=== PATIENT | female | born 1935 | race Two or more races ===

== ENCOUNTER 2016-11-26 07:48 | Inpatient (IN) | payer OTHER ==
--- NOTE | 2016-11-26 09:03 | PDOC ---
History of Present Illness - General Chief Complaint: Chest Pain Stated Complaint: CHEST PAIN Time Seen by Provider: 11/26/16 07:54 History Source: Patient Exam Limitations: No Limitations - History of Present Illness Initial Comments: 11/26/16 08:52 81-year-old female presents to the ED with constant chest heaviness since yesterday associated with nausea this morning. Patient hit her med alert [employer] which activated EMS who found patient to be in sinus bradycardia but with complaints of the above so came to baby aspirin and 1 nitroglycerin with a second repeated with no relief of chest pain. Patient arrives with 1 out of 10 chest heaviness and no complaints of palpitations, nausea, dizziness, headache, shortness of breath, or sweating. Patient states had an echocardiogram about 15 years ago and is followed by a doctor up states since she is here only visiting her son for the holidays. 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 Presenting Symptoms: Chest Pain, Nausea Severity/Quality: reports: moderate Nitro Today/Relief: Yes: 0.4 mg x 2, provided by EMS Aspirin Received prior to arrival (Core Measure): Yes: 81 mg x 2, provided by EMS Associated Symptoms: Yes: Chest Pain/pressure, Nausea Past History - Past Medical History Allergies/Adverse Reactions: Allergies Allergy/AdvReac Type Severity Reaction Status Date / Time No Known Allergies Allergy Verified 11/26/16 08:13 Home Medications: Ambulatory Orders Carvedilol [Coreg] 6.25 mg PO BID 11/26/16 Ciprofloxacin [Cipro (Restricted To Id)] 0 mg PO Q12H 11/26/16 Escitalopram Oxalate [Lexapro -] 0 mg PO DAILY 11/26/16 Isosorbide Mononitrate [Imdur -] 60 mg PO DAILY 11/26/16 Spironolactone mg PO DAILY 11/26/16 Cardiac Disorders: Yes (6 stents) CVA: Yes HTN: Yes - Psycho/Social/Smoking Cessation Hx Anxiety: No Suicidal Ideation: No Smoking History: Never smoked Information on smoking cessation initiated: No Hx Alcohol Use: No Drug/Substance Use Hx: No Substance Use Type: None Patient Lives Alone: Yes Lives with/in: lives alone Review of Systems - Review of Systems Able to Perform ROS?: Yes Constitutional: No: Symptoms Reported HEENTM: No: Symptoms Reported Respiratory: No: Symptoms reported Cardiac (ROS): Yes: Chest Pain ABD/GI: Yes: Nausea : No: Symptoms Reported Musculoskeletal: No: Symptoms Reported Integumentary: No: Symptoms Reported Neurological: No: Symptoms reported Endocrine: No: Symptoms Reported Hematologic/Lymphatic: No: Symptoms Reported *Physical Exam - Vital Signs Last Vital Signs Temp Pulse Resp BP Pulse Ox 97.5 F L 59 L 18 155/69 98 11/28/16 07:14 11/28/16 07:14 11/28/16 07:14 11/28/16 07:14 11/27/16 21:00 - Physical Exam General Appearance: Yes: Nourished, Appropriately Dressed. No: Apparent Distress HEENT: positive: EOMI, SADA. negative: Pale Conjunctivae Neck: positive: Supple Respiratory/Chest: positive: Lungs Clear, Normal Breath Sounds. negative: Respiratory Distress, Accessory Muscle Use Cardiovascular: positive: Regular Rhythm, Bradycardia. negative: Murmur Gastrointestinal/Abdominal: positive: Soft, Tenderness (mild epigastric). negative: Pulsatile Mass, Mass Extremity: positive: Normal Capillary Refill. negative: Pedal Edema Integumentary: positive: Warm, Moist Neurologic: positive: Normal Mood/Affect, Motor Strength 5/5 (ambulatory) Heart Score/ECG Review - History History: Slightly suspicious - Electrocardiogram EKG: Normal - Age Age: >/= 65 - Risk Factors Risk Factors Heart Score: Yes Hx Hypertension Based on the list above the patient has:: 1-2 risk factors - Troponin Troponin: </= normal limit - Score Heart Score - Total: 3 - ECG Intrepretation Rhythm: Regular Rhythm (sinus bradycardia at 52. No acute findings) ED Treatment Course - LABORATORY CBC & Chemistry Diagram: 11/28/16 06:00 11/28/16 06:00 - ADDITIONAL ORDERS Additional order review: 11/26/16 11/26/16 10:15 08:19 RBC 3.83 Cancelled MCV 92.3 Cancelled MCHC 32.6 Cancelled RDW 14.4 Cancelled MPV 10.2 Cancelled Neutrophils % 60.0 Cancelled Lymphocytes % 26.0 Cancelled Monocytes % 14.0 H Cancelled Eosinophils % Cancelled Basophils % Cancelled - RADIOLOGY Radiology Studies Ordered: Category Date Time Status CHEST PA & LAT [RAD] Stat Radiology 11/26/16 08:16 Completed - Medications Given in the ED: ED Medications Discontinued Medications Generic Name Dose Route Start Last Admin Trade Name Benny PRN Reason Stop Dose Admin Heparin Sodium (Porcine) 5,000 unit 11/26/16 22:00 11/27/16 10:41 Heparin - SQ 5,000 unit BID DIPESH Administration Magnesium Sulfate 1 gm 11/26/16 09:55 11/26/16 10:55 Magnesium Sulfate IVPB 11/26/16 09:56 1 gm ONCE ONE Administration Magnesium Sulfate 2 gm 11/27/16 16:41 11/27/16 18:10 Magnesium Sulfate IVPB 11/27/16 16:42 2 gm ONCE ONE Administration Medical Decision Making - Critical Care Time Total Critical Care Time (minutes): 35 Critical Care Statement: The care of this patient involved high complexity decision making to prevent further life threatening deterioration of the patient 's condition and/or to evalute & treat vital organ system(s) failure or risk of failure. - Medical Decision Making 11/26/16 08:56 Patient with complaints of central chest heaviness since yesterday associated nausea this morning. She found to be in sinus bradycardia upon arrival with 1 out of 10 complaints without nausea presently. Patient hard score is less than 3 but does have history of CAD with stents, hypertension with her last stress strest around 2-3 yrs ago and echocardiogram 15 years ago. Patient states is not have a weight engineer but only a primary care physician where she lives. Patient ordered for cardiac workup 11/26/16 09:57 Laboratory Tests 11/26/16 11/26/16 08:19 08:19 INR 1.28 H Sodium 143 Potassium 3.9 Chloride 112 H Carbon Dioxide 25 Anion Gap 6 L BUN 18 Creatinine 0.9 Random Glucose 74 Calcium 9.0 Magnesium 1.5 L Total Bilirubin 0.6 AST 37 ALT 28 Alkaline Phosphatase 73 Creatine Kinase 42 Troponin I < 0.02 patient ordered for 1 g of magnesium and will admit to telemetry observation 11/26/16 10:46 Laboratory Tests 11/26/16 10:15 WBC 2.2 L Hgb 11.5 Hct 35.4 Plt Count 66 L Neutrophils % Y 11/26/16 11:[address] Kwok and will admit to telemetry observation status and she recommends consultation to Dr. Larson. 11/26/16 12:00 Dr. Mascitelli here for consultation. 2nd troponin and EKG ordered. UA still pending *DC/Admit/Observation/Transfer Diagnosis at time of Disposition: Hypomagnesemia Chest pain Qualifiers: Chest pain type: unspecified Qualified Code(s): R07.9 - Chest pain, unspecified - Discharge Dispostion Admit: Yes
[2016-11-26 09:04] LABS: ALBUMIN 2.9 g/dl (3.4-5.0); ANION GAP 6 (8-16); BILIRUBIN,TOTAL 0.6 mg/dL (0.2-1.0); CO2 25 mmol/L (21-32); CREATININE 0.9 mg/dL (0.55-1.02); GLUCOSE,RANDOM 74 mg/dL (74-106); MAGNESIUM 1.5 mg/dL (1.8-2.4); SGOT/AST 37 U/L (15-37); SGPT/ALT 28 U/L (12-78); TOT PROT 7.5 g/dl (6.4-8.2)
[2016-11-26 09:07] LABS: ALK PHOS 73 U/L (45-117); INR 1.28 (0.82-1.09); PROTHROMBIN TIME (PATIENT) 14.1 SEC (9.98-11.88); TROPONIN I < 0.02 ng/ml (0.00-0.05)
[2016-11-26] MEDS ORDERED: MAGNESIUM SULF 50% (8.12 MEQ/2 ML-1 GM VIAL) IVPB ONE (09:55)
[2016-11-26 10:23] LABS: MCH 30.1 pg (25.7-33.7); MCHC 32.6 g/dl (32.0-36.0); MEAN CELL VOLUME 92.3 fl (80-96); MEAN PLT VOLUME 10.2 fl (7.5-11.1); PLATELET COUNT 66 K/MM3 (134-434); RDW 14.4 % (11.6-15.6); WHITE BLOOD COUNT 2.2 K/mm3 (4.0-10.0)
[2016-11-26] MEDS ORDERED: MAGNESIUM SULF 50% (8.12 MEQ/2 ML-1 GM VIAL) ONE (10:50)
--- NOTE | 2016-11-26 15:46 | EKG ---
Test Reason : Blood Pressure : / mmHG Vent. Rate : 052 BPM Atrial Rate : 052 BPM P-R Int : 146 ms QRS Dur : 094 ms QT Int : 460 ms P-R-T Axes : 063 -09 134 degrees QTc Int : 427 ms POOR DATA QUALITY, INTERPRETATION MAY BE ADVERSELY AFFECTED SINUS BRADYCARDIA VOLTAGE CRITERIA FOR LEFT VENTRICULAR HYPERTROPHY ANTERIOR INFARCT , AGE UNDETERMINED T WAVE ABNORMALITY, CONSIDER LATERAL ISCHEMIA ABNORMAL ECG NO PREVIOUS ECGS AVAILABLE Confirmed by JUD FAY, YESSICA ([id number]) on 11/26/2016 3:45:49 PM Referred By: Overread By: YESSICA RENNER MD
--- NOTE | 2016-11-26 15:51 | CONSULT ---
Consult Consult Specialty:: cardiology Reason for Consultation:: shortness of breath; - History of Present Illness History of Present Illness: 81-year-old black female (b. [place]) with PMHx "small DE" in 2008; s/p coronary stents x 6, the latest about 3 years ago (? in [place]), also followed in [facility], though not by canvas goods maker recently (? stress Persantine test done about 1 1/2 years ago), anxiety/depression, who presents to the ED with constant chest heaviness since yesterday associated with nausea this morning. Patient hit her [employer] activated EMS who found patient to be in sinus bradycardia but with complaints of the above so came to baby aspirin and 1 nitroglycerin with a second repeated with no relief of chest pain. Patient arrives with 1 out of 10 chest heaviness and no complaints of palpitations, nausea, dizziness, headache, shortness of breath, or sweating. Patient states is followed by a doctor since she is here only visiting her son for the holidays. Patient also states history of CVA 1 year ago and hypertension and takes her medication regularly. 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 Cardio/Vascular: Yes: HTN, DE Reproductive: Yes: Postmenopausal ...: No Heme/Onc: Yes: Other (leukopenia) Psych: Yes: Anxiety, Depression - Past Surgical History Past Surgical History: Yes: Stent ("six" coronary stents) - Alcohol/Substance Use Hx Alcohol Use: No - Smoking History Smoking history: Never smoked Home Medications - Allergies Allergies/Adverse Reactions: Allergies Allergy/AdvReac Type Severity Reaction Status Date / Time No Known Allergies Allergy Verified 11/26/16 08:13 - Home Medications Home Medications: Ambulatory Orders Carvedilol [Coreg] 6.25 mg PO BID 11/26/16 Ciprofloxacin [Cipro (Restricted To Id)] 0 mg PO Q12H 11/26/16 Escitalopram Oxalate [Lexapro -] 0 mg PO DAILY 11/26/16 Isosorbide Mononitrate [Imdur -] 60 mg PO DAILY 11/26/16 Spironolactone mg PO DAILY 11/26/16 Family Disease History - Family Disease History Family History: Denies Review of Systems - Review of Systems Constitutional: reports: Weakness Eyes: reports: No Symptoms HENT: reports: No Symptoms Neck: reports: No Symptoms Cardiovascular: reports: Chest Pain Respiratory: reports: SOB Musculoskeletal: reports: Muscle Weakness Neurological: reports: Weakness Psychiatric: reports: Anxiety, Depression - Risk Factors Known Risk Factors: Yes: Age, Hypertension, Physical Inactivity, Prior DE /Emb Stroke Vital Signs: Vital Signs Temperature 98.7 F 11/26/16 08:13 Pulse Rate 51 L 11/26/16 13:26 Respiratory Rate 20 11/26/16 13:26 Blood Pressure 150/63 11/26/16 13:26 O2 Sat by Pulse Oximetry (%) 97 11/26/16 13:26 Constitutional: Yes: Thin Eyes: Yes: WNL HENT: Yes: WNL Neck: Yes: WNL Respiratory: Yes: SOB on Exertion Gastrointestinal: Yes: Soft Renal/: Yes: Anuria Cardiovascular: Yes: Regular Rate and Rhythm JVD: No Carotid Bruit: No PMI: Non-Displaced Heart Sounds: Yes: S1, S2, S4 Murmur: Yes: Systolic Murmur, Grade 1 Musculoskeletal: Yes: Muscle Weakness Extremities: Yes: Cool Edema: No Peripheral Pulses WNL: No Peripheral Pulses: 1+ Left Doralis Pedis, 1+ Right Dorsalis Pedis Integumentary: Yes: WNL Neurological: Yes: Alert, Oriented, Weakness Psychiatric: Yes: Alert, Oriented - Other Data Labs, Other Data: INR, PTT INR 1.28 (0.82-1.09) H 11/26/16 08:19 Abnormal Lab Results 11/26/16 11/26/16 11/26/16 08:19 08:19 10:15 WBC 2.2 L Plt Count 66 L Monocytes % 14.0 H INR 1.28 H Chloride 112 H Anion Gap 6 L Magnesium 1.5 L Albumin 2.9 L Urine Protein Urine Blood Ur Leukocyte Esterase 11/26/16 22:31 WBC Plt Count Monocytes % INR Chloride Anion Gap Magnesium Albumin Urine Protein 2+ H Urine Blood 2+ H Ur Leukocyte Esterase Trace H Imaging - Results Chest X-ray: Image Reviewed (no acute pulmonary pathology; ?rib fractures (righ side); cardiomegaly) EKG: Image Reviewed (NSR;) Problem List - Problems (1) Chest pain Assessment/Plan: atypical presentation (constant for days; not related to exertion). TNI negative x 1; f/u serially. ECHO for LVEF, wall motion and thickness. F/u EKG serially (?old anterior DE; lateral T wave changes). Pt reports having had a stress test (from description, it was a pharmacologic stress MIBI) about 1 1/2 years ago ?at PMD's office. F/u records, and consider repeat if unable to obtain. Code(s): R07.9 - CHEST PAIN, UNSPECIFIED Qualifiers: Chest pain type: unspecified Qualified Code(s): R07.9 - Chest pain, unspecified (2) Hypomagnesemia Assessment/Plan: replete; f/u level. Code(s): E83.42 - HYPOMAGNESEMIA (4) Leukopenia Code(s): D72.819 - DECREASED WHITE BLOOD CELL COUNT, UNSPECIFIED (5) Hypertension Code(s): I10 - ESSENTIAL (PRIMARY) HYPERTENSION (6) S/P coronary artery stent placement Code(s): Z95.5 - PRESENCE OF CORONARY ANGIOPLASTY IMPLANT AND GRAFT (7) Anxiety and depression Code(s): F41.9 - ANXIETY DISORDER, UNSPECIFIED F32.9 - MAJOR DEPRESSIVE DISORDER, SINGLE EPISODE, UNSPECIFIED
--- NOTE | 2016-11-26 16:31 | PDOC ---
*Physical Exam - Vital Signs Last Vital Signs Temp Pulse Resp BP Pulse Ox 98.7 F 51 L 20 150/63 97 11/26/16 08:13 11/26/16 13:26 11/26/16 13:26 11/26/16 13:26 11/26/16 13:26 ED Treatment Course - LABORATORY CBC & Chemistry Diagram: 11/26/16 10:15 11/26/16 08:19 - ADDITIONAL ORDERS Additional order review: Laboratory Results 11/26/16 11/26/16 08:19 08:19 INR 1.28 H Sodium 143 Potassium 3.9 Chloride 112 H Carbon Dioxide 25 Anion Gap 6 L BUN 18 Creatinine 0.9 Creat Clearance w eGFR > 60 Random Glucose 74 Calcium 9.0 Magnesium 1.5 L Total Bilirubin 0.6 AST 37 ALT 28 Alkaline Phosphatase 73 Creatine Kinase 42 Troponin I < 0.02 Total Protein 7.5 Albumin 2.9 L 11/26/16 11/26/16 10:15 08:19 RBC 3.83 Cancelled MCV 92.3 Cancelled MCHC 32.6 Cancelled RDW 14.4 Cancelled MPV 10.2 Cancelled Neutrophils % 60.0 Cancelled Lymphocytes % 26.0 Cancelled Monocytes % 14.0 H Cancelled Eosinophils % Cancelled Basophils % Cancelled - Medications Given in the ED: ED Medications Discontinued Medications Generic Name Dose Route Start Last Admin Trade Name Benny PRN Reason Stop Dose Admin Magnesium Sulfate 1 gm 11/26/16 09:55 11/26/16 10:55 Magnesium Sulfate IVPB 11/26/16 09:56 1 gm ONCE ONE Administration Medical Decision Making - Medical Decision Making 11/26/16 16:31 Pt seen by Midlevel Provider under my direct supervision Pt interviewed and examined Ancillary studies reviewed I agree with plan as outlined by Midlevel Provider *DC/Admit/Observation/Transfer Diagnosis at time of Disposition: Hypomagnesemia Chest pain Qualifiers: Chest pain type: unspecified Qualified Code(s): R07.9 - Chest pain, unspecified
[2016-11-26 16:57] LABS: TROPONIN I < 0.02 ng/ml (0.00-0.05)
[2016-11-26] MEDS: ASPIRIN COATED 81 MG TABLET.EC PO SCH (21:24)
[2016-11-26] MEDS: HEPARIN NA (PORCINE) 5,000 UNITS/ML 1ML VIAL SQ SCH (21:24)
[2016-11-26] MEDS: CARVEDILOL 6.25 MG TABLET (FP) PO SCH (21:24)
[2016-11-26] MEDS: ISOSORBIDE MONONITRATE 60 MG TAB.SR.24H (FP) PO SCH (21:24)
[2016-11-26 22:36] LABS: TROPONIN I < 0.02 ng/ml (0.00-0.05)
[2016-11-26 23:26] LABS: URINE APPEARANCE CLEAR; URINE BILIRUBIN NEGATIVE (NEGATIVE); URINE COLOR YELLOW; URINE GLUCOSE (UA) NEGATIVE (NEGATIVE); URINE KETONE NEGATIVE (NEGATIVE); URINE NITRITE POSITIVE (NEGATIVE); URINE UROBILINOGEN NEGATIVE E.U./dl (0.2-1.0)
[2016-11-26 23:30] LABS: URINE BLOOD 2+ (NEGATIVE); URINE LEUK ESTERASE TRACE (NEGATIVE); URINE PROTEIN 2+ (NEGATIVE)
[2016-11-26 23:31] LABS: URINE BACTERIA RARE /hpf (NONE SEEN); URINE MUCUS RARE; URINE RBC 31 /hpf (0-3); URINE WBC 9 /hpf (3-5)
[2016-11-27 02:02] VITALS: BMI 25.0
[2016-11-27 02:44] LABS: CHOLESTEROL 102 mg/dL (50-200); LDL CHOLESTEROL (ONLY SJRH) 47 mg/dL (5-100)
[2016-11-27 02:51] LABS: THYROID STIMULATING HORMONE 2.01 uIU/ml (0.358-3.74)
[2016-11-27 08:31] LABS: MCH 30.4 pg (25.7-33.7); MCHC 33.1 g/dl (32.0-36.0); MEAN CELL VOLUME 91.9 fl (80-96); MEAN PLT VOLUME 9.7 fl (7.5-11.1); PLATELET COUNT 56 K/MM3 (134-434); RDW 14.5 % (11.6-15.6)
[2016-11-27 08:37] LABS: WHITE BLOOD COUNT 1.8 K/mm3 (4.0-10.0)
[2016-11-27 08:52] LABS: ALBUMIN 2.8 g/dl (3.4-5.0); ALK PHOS 64 U/L (45-117); ANION GAP 1 (8-16); BILIRUBIN,TOTAL 0.5 mg/dL (0.2-1.0); CALCIUM 8.7 mg/dL (8.5-10.1); CO2 25 mmol/L (21-32); CREATININE 0.9 mg/dL (0.55-1.02); GLUCOSE,RANDOM 72 mg/dL (74-106); MAGNESIUM 1.7 mg/dL (1.8-2.4); SGOT/AST 34 U/L (15-37); SGPT/ALT 26 U/L (12-78)
--- NOTE | 2016-11-27 10:13 | EKG ---
Test Reason : Blood Pressure : / mmHG Vent. Rate : 058 BPM Atrial Rate : 058 BPM P-R Int : 158 ms QRS Dur : 096 ms QT Int : 456 ms P-R-T Axes : 063 -08 136 degrees QTc Int : 447 ms SINUS BRADYCARDIA VOLTAGE CRITERIA FOR LEFT VENTRICULAR HYPERTROPHY ANTERIOR INFARCT (CITED ON OR BEFORE 26-NOV-2016) T WAVE ABNORMALITY, CONSIDER ANTEROLATERAL ISCHEMIA ABNORMAL ECG WHEN COMPARED WITH ECG OF 26-NOV-2016 08:00, NO SIGNIFICANT CHANGE WAS FOUND Confirmed by MD WILFRIDO, MCKAYLA ([id number]) on 11/27/2016 10:13:21 AM Referred By: MARIANA FELIX Overread By: MCKAYLA ANNA MD
[2016-11-27] MEDS: CARVEDILOL 6.25 MG TABLET (FP) PO SCH ×2 (10:38→21:28)
[2016-11-27] MEDS: SPIRONOLACTONE 25 MG TABLET (FP) PO SCH (10:38)
[2016-11-27] MEDS: ASPIRIN COATED 81 MG TABLET.EC PO SCH (10:38)
[2016-11-27] MEDS: ESCITALOPRAM OXALATE 10 MG TABLET (FP) PO SCH (10:38)
[2016-11-27] MEDS: ISOSORBIDE MONONITRATE 60 MG TAB.SR.24H (FP) PO SCH (10:38)
[2016-11-27] MEDS: HEPARIN NA (PORCINE) 5,000 UNITS/ML 1ML VIAL SQ SCH (10:41)
[2016-11-27] MEDS ORDERED: MAGNESIUM SULF 50% (8.12 MEQ/2 ML-1 GM VIAL) IVPB ONE (16:41)
--- NOTE | 2016-11-27 16:42 | PN ---
Progress Note, Physician History of Present Illness: 81-year-old black female (b. [place]) with PMHx "small NH" in 2008; s/p coronary stents x 6, the latest about 3 years ago (? in [place]), also followed in [facility], though not by design cell engineer recently (? stress Persantine test done about 1 1/2 years ago), anxiety/depression, who presents to the ED with constant chest heaviness since yesterday associated with nausea this morning. Patient hit her [employer] activated EMS who found patient to be in sinus bradycardia but with complaints of the above so came to baby aspirin and 1 nitroglycerin with a second repeated with no relief of chest pain. Patient arrives with 1 out of 10 chest heaviness and no complaints of palpitations, nausea, dizziness, headache, shortness of breath, or sweating. Patient states is followed by a doctor since she is here only visiting her son for the holidays. Patient also states history of CVA 1 year ago and hypertension and takes her medication regularly. Presenting Symptoms: Chest Pain, Nausea Severity/Quality: reports: moderate Nitro Today/Relief: Yes: 0.4 mg x 2, provided by EMS - Current Medication List Current Medications: Active Medications Aspirin (Ecotrin -) 81 mg PO DAILY PENDING SALE TO [facility] Last Admin: 11/27/16 10:38 Dose: 81 mg Carvedilol (Coreg -) 6.25 mg PO BID PENDING SALE TO [facility] Last Admin: 11/27/16 10:38 Dose: 6.25 mg Escitalopram Oxalate (Lexapro -) 10 mg PO DAILY PENDING SALE TO [facility] Last Admin: 11/27/16 10:38 Dose: 10 mg Heparin Sodium (Porcine) (Heparin -) 5,000 unit SQ BID PENDING SALE TO [facility] Last Admin: 11/27/16 10:41 Dose: 5,000 unit Isosorbide Mononitrate (Imdur -) 60 mg PO DAILY PENDING SALE TO [facility] Last Admin: 11/27/16 10:38 Dose: 60 mg Spironolactone (Aldactone -) 25 mg PO DAILY PENDING SALE TO [facility] Last Admin: 11/27/16 10:38 Dose: 25 mg - Objective Vital Signs: Vital Signs Temperature 98.5 F 11/27/16 14:00 Pulse Rate 68 11/27/16 14:00 Respiratory Rate 18 11/27/16 14:00 Blood Pressure 121/66 12/30/16 14:00 O2 Sat by Pulse Oximetry (%) 98 11/27/16 09:00 Labs: CBC, BMP 11/27/16 07:10 11/27/16 07:10 INR, PTT INR 1.28 (0.82-1.09) H 11/26/16 08:19 Problem List - Problems (1) Chest pain Assessment/Plan: atypical presentation (constant for days; not related to exertion). ?Demand ischemia related to pancytopenia. TNI <0.02 x 3. ECHO: mildly reduced LVEF; hypokinesis of anteroseptal and apical wall; moderate AR; mild MR, TR, and SC. EKG: old anterior NH; lateral T wave changes). Pt reports having had a stress test (from description, it was a pharmacologic stress MIBI) about 1 1/2 years ago ?at PMD's office. F/u records, and consider repeat if unable to obtain. Code(s): R07.9 - CHEST PAIN, UNSPECIFIED Qualifiers: Chest pain type: unspecified Qualified Code(s): R07.9 - Chest pain, unspecified (2) Hypomagnesemia Assessment/Plan: Magnesium remains low (1.7); add 2g Magnesium sulfate and f/u level. Code(s): E83.42 - HYPOMAGNESEMIA (4) Hypertension Code(s): I10 - ESSENTIAL (PRIMARY) HYPERTENSION (5) S/P coronary artery stent placement Assessment/Plan: f/u records of cardiac angiogram. Total cholesterol 102 mg/dL. Code(s): Z95.5 - PRESENCE OF CORONARY ANGIOPLASTY IMPLANT AND GRAFT (6) Anxiety and depression Code(s): F41.9 - ANXIETY DISORDER, UNSPECIFIED F32.9 - MAJOR DEPRESSIVE DISORDER, SINGLE EPISODE, UNSPECIFIED (7) Pancytopenia Assessment/Plan: f/u with hematology. Code(s): D61.818 - OTHER PANCYTOPENIA (8) Systolic CHF Assessment/Plan: On carvedilol and Aldactone; add ACEI or ARB. Code(s): I50.20 - UNSPECIFIED SYSTOLIC (CONGESTIVE) HEART FAILURE
--- NOTE | 2016-11-27 18:35 | HP ---
Admitting History and Physical - Admission History of Present Illness: Pt is 81 y/o female w/ a h/o HTN, CVA, Hep C that was treated w/ aleida 2 yrs prior and depression who presented to the er bc of chest pain. Pt stated that in the am she developed chest pain wc was substernal and nonradiating. It was not associated w/ SOB and palpitations. Pt was given NTG x 2 wc did not relieve the pain. 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 Cardiovascular: Yes: HTN ...: No Heme/Onc: Yes: Other (leukopenia) Psych: Yes: Anxiety, Depression - Past Surgical History Past Surgical History: Yes: None, Stent ("six" coronary stents) - Smoking History Smoking history: Never smoked - Alcohol/Substance Use Hx Alcohol Use: No Home Medications - Allergies Allergies/Adverse Reactions: Allergies Allergy/AdvReac Type Severity Reaction Status Date / Time No Known Allergies Allergy Verified 11/26/16 08:13 - Home Medications Home Medications: Ambulatory Orders Carvedilol [Coreg] 6.25 mg PO BID 11/26/16 Ciprofloxacin [Cipro (Restricted To Id)] 0 mg PO Q12H 11/26/16 Escitalopram Oxalate [Lexapro -] 0 mg PO DAILY 11/26/16 Isosorbide Mononitrate [Imdur -] 60 mg PO DAILY 11/26/16 Spironolactone mg PO DAILY 11/26/16 Family Disease History - Family Disease History Family History: Unremarkable Review of Systems - Review of Systems Constitutional: reports: No Symptoms HENT: reports: No Symptoms Neck: reports: No Symptoms Cardiovascular: reports: Chest Pain Respiratory: reports: No Symptoms Gastrointestinal: reports: No Symptoms Physical Examination Vital Signs: Vital Signs Temperature 98.5 F 11/27/16 14:00 Pulse Rate 68 11/27/16 14:00 Respiratory Rate 18 11/27/16 14:00 Blood Pressure 121/66 11/27/16 14:00 O2 Sat by Pulse Oximetry (%) 98 11/27/16 09:00 Constitutional: Yes: No Distress HENT: Yes: WNL, Atraumatic, Normocephalic Neck: Yes: WNL, Supple Cardiovascular: Yes: WNL, Regular Rate and Rhythm Respiratory: Yes: WNL, Regular, CTA Bilaterally Gastrointestinal: Yes: WNL, Normal Bowel Sounds, Soft Extremities: Yes: WNL Labs: CBC, BMP 11/27/16 07:10 11/27/16 07:10 Problem List - Problems (1) Chest pain Assessment/Plan: Admit to tele Serial cpk/troponin Cardio consult Code(s): R07.9 - CHEST PAIN, UNSPECIFIED Qualifiers: Chest pain type: unspecified Qualified Code(s): R07.9 - Chest pain, unspecified (2) Hypertension Assessment/Plan: BP stable Cont coreg/imdur/spironolactone Code(s): I10 - ESSENTIAL (PRIMARY) HYPERTENSION (3) Leukopenia Assessment/Plan: Due to hep C ? Cont to follow WBC Code(s): D72.819 - DECREASED WHITE BLOOD CELL COUNT, UNSPECIFIED (4) Anxiety and depression Assessment/Plan: Cont lexpro Code(s): F41.9 - ANXIETY DISORDER, UNSPECIFIED F32.9 - MAJOR DEPRESSIVE DISORDER, SINGLE EPISODE, UNSPECIFIED
--- NOTE | 2016-11-27 20:48 | CONSULT ---
Consult - text type - Consultation Consultation Note: 81-year-old black female (b. [place]) with PMHx "small IA" in 2009; s/p coronary stents x 6, the latest about 3 years ago (? 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 stress Persantine test done about 1 1/2 years ago), anxiety/depression, who presents to the ED with constant chest heaviness/pain since yesterday associated with nausea this morning. no complaints of palpitations, nausea, dizziness, headache, shortness of breath, or sweating. occ. fevers. reports recent UTI and still with dysuria.No bleeding anywhere. 10lb wt. 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 Cardio/Vascular: Yes: HTN, IA Reproductive: Yes: Postmenopausal Heme/Onc: Yes: Other (leukopenia) Psych: Yes: Anxiety, Depression - Past Surgical History Past Surgical History: Yes: Stent ("six" coronary stents) - Smoking History Smoking history: Never smoked Home Medications - Allergies Allergies/Adverse Reactions: Allergies Allergy/AdvReac Type Severity Reaction Status Date / Time No Known Allergies Allergy Verified 11/26/16 08:13 - Home Medications Home Medications: Ambulatory Orders Carvedilol [Coreg] 6.25 mg PO BID 11/26/16 Ciprofloxacin [Cipro (Restricted To Id)] 0 mg PO Q12H 11/26/16 Escitalopram Oxalate [Lexapro -] 0 mg PO DAILY 11/26/16 Isosorbide Mononitrate [Imdur -] 60 mg PO DAILY 11/26/16 Spironolactone mg PO DAILY 11/26/16 Current Medications Aspirin (Ecotrin -) 81 mg PO DAILY [facility] Last Admin: 11/27/16 10:38 Dose: 81 mg Carvedilol (Coreg -) 6.25 mg PO BID [facility] Last Admin: 11/27/16 10:38 Dose: 6.25 mg Escitalopram Oxalate (Lexapro -) 10 mg PO DAILY [facility] Last Admin: 11/27/16 10:38 Dose: 10 mg Isosorbide Mononitrate (Imdur -) 60 mg PO DAILY [facility] Last Admin: 11/27/16 10:38 Dose: 60 mg Spironolactone (Aldactone -) 25 mg PO DAILY [facility] Last Admin: 11/27/16 10:38 Dose: 25 mg Family Disease History - Family Disease History Family History: Denies - Risk Factors Known Risk Factors: Yes: Age, Hypertension, Physical Inactivity, Prior IA /Emb Stroke Vital Signs: Last Vital Signs Temp Pulse Resp BP Pulse Ox 98.7 F 59 L 18 115/68 98 11/27/16 16:30 11/27/16 16:30 11/27/16 16:30 11/27/16 16:30 11/27/16 09:00 HENT: Yes: WNL Respiratory: CTA b/l Gastrointestinal: Yes: Soft, PEG tube+ Cardiovascular: Yes: Regular Rate and Rhythm Heart Sounds: Yes: S1, S2, Anasarca Abnormal Lab Results 11/26/16 11/26/16 11/27/16 21:30 22:31 07:10 WBC 1.8 L RBC 3.58 L Plt Count 56 L Neutrophils % 36.0 L D Lymphocytes % 50.0 H D Monocytes % 14.0 H Chloride Anion Gap Random Glucose Magnesium Albumin HDL Cholesterol 61 H Urine Protein 2+ H Urine Blood 2+ H Ur Leukocyte Esterase Trace H 11/27/16 07:10 WBC RBC Plt Count Neutrophils % Lymphocytes % Monocytes % Chloride 111 H Anion Gap 1 L Random Glucose 72 L Magnesium 1.7 L Albumin 2.8 L HDL Cholesterol Urine Protein Urine Blood Ur Leukocyte Esterase Imaging - Results Chest X-ray: Image Reviewed (no acute pulmonary pathology; ?rib fractures (righ side); cardiomegaly) EKG: Image Reviewed (NSR;) A/P 81 y/o patient with h/o CAD, s/p stents, anxiety, depression, comes in with chest tightness. Noted to be pancytopenic. Recent UTI Pancytopenia ---check cultures/given recewnt UTI and antibiotic use--check urine cx Check B12/folate/U/S liver/TSH/fT4 check smear check flow. monitor platelets--may need to hold ASA if they drop below [id number] Rever AAG ratio--check protein studies
[2016-11-27] MEDS ORDERED: ACETAMINOPHEN 325 MG TABLET (FP) PO PRN ×2 (22:16→22:33)
[2016-11-27 22:35] LABS: INR 1.25 (0.82-1.09); PROTHROMBIN TIME (PATIENT) 13.8 SEC (9.98-11.88)
[2016-11-28 04:06] LABS: C-REACTIVE PROTEIN < 0.3 MG/DL (0.00-0.3)
[2016-11-28 07:52] LABS: BASOPHIL 0.2 % (0-2.0); EOSINOPHIL 0.5 % (0-4.5); MCH 30.5 pg (25.7-33.7); MCHC 33.2 g/dl (32.0-36.0); MEAN CELL VOLUME 91.8 fl (80-96); MEAN PLT VOLUME 10.2 fl (7.5-11.1); NEUTROPHILS 38.8 % (42.8-82.8); PLATELET COUNT 55 K/MM3 (134-434); RDW 14.6 % (11.6-15.6); WHITE BLOOD COUNT 2.2 K/mm3 (4.0-10.0)
[2016-11-28 08:14] LABS: ALBUMIN 2.9 g/dl (3.4-5.0); ALK PHOS 66 U/L (45-117); ANION GAP 10 (8-16); BILIRUBIN,TOTAL 0.5 mg/dL (0.2-1.0); CALCIUM 8.7 mg/dL (8.5-10.1); CO2 25 mmol/L (21-32); CREATININE 0.8 mg/dL (0.55-1.02); GLUCOSE,RANDOM 68 mg/dL (74-106); LDH 193 U/L (84-246); SGOT/AST 32 U/L (15-37); SGPT/ALT 26 U/L (12-78); TOT PROT 7.4 g/dl (6.4-8.2); URIC ACID 6.5 mg/dL (2.6-7.2)
[2016-11-28 08:16] LABS: ACTIVATED PTT 23.5 SECONDS (26.9-34.4)
[2016-11-28 08:26] LABS: FREE T4 1.09 ng/dl (0.76-1.46); THYROID STIMULATING HORMONE 3.27 uIU/ml (0.358-3.74)
[2016-11-28] MEDS: ESCITALOPRAM OXALATE 10 MG TABLET (FP) PO SCH (09:31)
[2016-11-28] MEDS: CARVEDILOL 6.25 MG TABLET (FP) PO SCH ×2 (09:31→21:43)
[2016-11-28] MEDS: ASPIRIN COATED 81 MG TABLET.EC PO SCH (09:31)
[2016-11-28] MEDS: SPIRONOLACTONE 25 MG TABLET (FP) PO SCH (09:31)
[2016-11-28] MEDS: ISOSORBIDE MONONITRATE 60 MG TAB.SR.24H (FP) PO SCH (09:31)
--- NOTE | 2016-11-28 10:25 | PN ---
Progress Note, Physician History of Present Illness: seen and examined today in [facility]. feeling better. no overnight events. no new complaints. - Current Medication List Current Medications: Active Medications Acetaminophen (Tylenol -) 650 mg PO Q6H PRN PRN Reason: FEVER OR PAIN Last Admin: 11/27/16 22:54 Dose: 650 mg Acetaminophen (Tylenol -) 650 mg PO Q6H PRN PRN Reason: FEVER OR PAIN Aspirin (Ecotrin -) 81 mg PO DAILY [facility] Last Admin: 11/28/16 09:31 Dose: 81 mg Carvedilol (Coreg -) 6.25 mg PO BID [facility] Last Admin: 11/28/16 09:31 Dose: 6.25 mg Escitalopram Oxalate (Lexapro -) 10 mg PO DAILY [facility] Last Admin: 11/28/16 09:31 Dose: 10 mg Isosorbide Mononitrate (Imdur -) 60 mg PO DAILY [facility] Last Admin: 11/28/16 09:31 Dose: 60 mg Spironolactone (Aldactone -) 25 mg PO DAILY [facility] Last Admin: 11/28/16 09:31 Dose: 25 mg - Objective Vital Signs: Vital Signs Temperature 97.5 F L 11/28/16 07:14 Pulse Rate 59 L 11/28/16 07:14 Respiratory Rate 18 11/28/16 07:14 Blood Pressure 155/69 11/28/16 07:14 O2 Sat by Pulse Oximetry (%) 98 11/27/16 21:00 Constitutional: Yes: Well Nourished, No Distress, Calm Eyes: Yes: WNL, Conjunctiva Clear, EOM Intact, PERRL HENT: Yes: WNL, Atraumatic, Normocephalic Neck: Yes: WNL, Supple, Trachea Midline Cardiovascular: Yes: Regular Rate and Rhythm, Bradycardia. No: Tachycardia, Pulse Irregular, Bruit, JVD, Gallop, Murmur Respiratory: Yes: WNL, Regular, CTA Bilaterally. No: Rales, Rhonchi, Wheezes Gastrointestinal: Yes: WNL, Normal Bowel Sounds, Soft. No: Distention, Tenderness Musculoskeletal: Yes: WNL Extremities: Yes: WNL Edema: No Peripheral Pulses WNL: Yes Peripheral Pulses: Left Doralis Pedis: 2+, Right Dorsalis Pedis: 2+ Integumentary: Yes: WNL Neurological: Yes: WNL, Alert, Oriented, Cran Nerves II-XII Intact ...Motor Strength: WNL Psychiatric: Yes: WNL, Alert, Oriented Labs: CBC, BMP 11/28/16 06:00 11/28/16 06:00 INR, PTT INR 1.25 (0.82-1.09) H 11/27/16 21:35 Fibrinogen 189.0 mg/dL (238-498) L 11/28/16 06:00 - ....Imaging Chest X-ray: Report Reviewed, Image Reviewed EKG: Report Reviewed, Image Reviewed Other: Report Reviewed, Image Reviewed (tele-sinus leslie 40-50s, no sig arrhythmia) Problem List - Problems (1) Chest pain Code(s): R07.9 - CHEST PAIN, UNSPECIFIED Qualifiers: Chest pain type: unspecified Qualified Code(s): R07.9 - Chest pain, unspecified (2) Hypertension Code(s): I10 - ESSENTIAL (PRIMARY) HYPERTENSION (3) Pancytopenia Code(s): D61.818 - OTHER PANCYTOPENIA (4) S/P coronary artery stent placement Code(s): Z95.5 - PRESENCE OF CORONARY ANGIOPLASTY IMPLANT AND GRAFT (5) Systolic CHF Code(s): I50.20 - UNSPECIFIED SYSTOLIC (CONGESTIVE) HEART FAILURE Assessment/Plan Chest pain-atypical, h/o stents but unknown details -symptoms resolved -cardiac enzymes wnl -echo showed mildly reduced LV function with anteroseptal and apical hypokinesis , mod AR, mild MR/TR/MD -cont asa, coreg, imdur Chronic systolic CHF -currently euvolemic -cont current medical regimen HTN-overall adequately controlled -cont current medical regimen for now Pancytopenia -Hematology following
[2016-11-28] MEDS ORDERED: SULFAMETHOXAZOLE/TRIMETHOPRIM 800MG/160MG D.S. TABLET PO SCH (13:30)
--- NOTE | 2016-11-28 16:31 | CONSULT ---
Consult Consult Specialty:: consult Referred by:: infectious diseases Reason for Consultation:: uti - History of Present Illness History of Present Illness: patient was initially admitted with the following history 81-year-old black female who was initially admitted wiht chest pain and being treated by cardiology patient has multiple medical problems and reports recent uti on admission and work up patient again has uti and i was called to evaluate and treat the patient for the same patient currently has no issues - History Source History Provided By: Medical Record Limitations to Obtaining History: Poor Historian - Past Medical History 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 Cardio/Vascular: Yes: HTN ...: No Psych: Yes: Anxiety, Depression - Past Surgical History Past Surgical History: Yes: None, Stent ("six" coronary stents) - Alcohol/Substance Use Hx Alcohol Use: No - Smoking History Smoking history: Never smoked Home Medications - Allergies Allergies/Adverse Reactions: Allergies Allergy/AdvReac Type Severity Reaction Status Date / Time No Known Allergies Allergy Verified 11/26/16 08:13 - Home Medications Home Medications: Ambulatory Orders Carvedilol [Coreg] 6.25 mg PO BID 11/26/16 Ciprofloxacin [Cipro (Restricted To Id)] 0 mg PO Q12H 11/26/16 Escitalopram Oxalate [Lexapro -] 0 mg PO DAILY 11/26/16 Isosorbide Mononitrate [Imdur -] 60 mg PO DAILY 11/26/16 Spironolactone mg PO DAILY 11/26/16 Review of Systems - Review of Systems Constitutional: reports: No Symptoms Eyes: reports: No Symptoms HENT: reports: No Symptoms Neck: reports: No Symptoms Cardiovascular: reports: No Symptoms Respiratory: reports: No Symptoms Gastrointestinal: reports: No Symptoms Genitourinary: reports: Dysuria Musculoskeletal: reports: No Symptoms Integumentary: reports: No Symptoms Neurological: reports: No Symptoms Endocrine: reports: No Symptoms Physical Exam Vital Signs: Vital Signs Temperature 98.2 F 11/28/16 14:47 Pulse Rate 78 11/28/16 14:47 Respiratory Rate 18 11/28/16 14:47 Blood Pressure 137/50 11/28/16 14:47 O2 Sat by Pulse Oximetry (%) 98 11/28/16 10:00 Constitutional: Yes: No Distress, Calm, Thin Eyes: Yes: Conjunctiva Clear HENT: Yes: Atraumatic, Normocephalic Neck: Yes: Supple Cardiovascular: Yes: Regular Rate and Rhythm, Murmur Respiratory: Yes: Regular Gastrointestinal: Yes: Normal Bowel Sounds, Soft Integumentary: Yes: WNL Neurological: Yes: Alert, Oriented Psychiatric: Yes: Alert Labs: CBC, BMP 11/28/16 06:00 11/28/16 06:00 Imaging - Results Chest X-ray: Report Reviewed, Image Reviewed Assessment/Plan Problem List - Problems (1) Chest pain Code(s): R07.9 - CHEST PAIN, UNSPECIFIED Qualifiers: Chest pain type: unspecified Qualified Code(s): R07.9 - Chest pain, unspecified (2) Hypomagnesemial. Code(s): E83.42 - HYPOMAGNESEMIA (4) Leukopenia Code(s): D72.819 - DECREASED WHITE BLOOD CELL COUNT, UNSPECIFIED (5) Hypertension Code(s): I10 - ESSENTIAL (PRIMARY) HYPERTENSION (6) S/P coronary artery stent placement Code(s): Z95.5 - PRESENCE OF CORONARY ANGIOPLASTY IMPLANT AND GRAFT (7) Anxiety and depression Code(s): F41.9 - ANXIETY DISORDER, UNSPECIFIED F32.9 - MAJOR DEPRESSIVE DISORDER, SINGLE EPISODE, UNSPE uti neutropenia plan await for identity of the organism will start patient on iv abx
[2016-11-28] MEDS: PIPERACILLIN/TAZOB 3.375 GM 50 ML IVPB SCH (18:16)
--- NOTE | 2016-11-28 19:37 | PN ---
Progress Note, Physician - Current Medication List Current Medications: Active Medications Acetaminophen (Tylenol -) 650 mg PO Q6H PRN PRN Reason: FEVER OR PAIN Aspirin (Ecotrin -) 81 mg PO DAILY [facility] Last Admin: 11/28/16 09:31 Dose: 81 mg Carvedilol (Coreg -) 6.25 mg PO BID [facility] Last Admin: 11/28/16 09:31 Dose: 6.25 mg Escitalopram Oxalate (Lexapro -) 10 mg PO DAILY [facility] Last Admin: 11/28/16 09:31 Dose: 10 mg Piperacillin Sod/Tazobactam Sod (Zosyn 3.375gm Ivpb (Pre-Docked)) 50 mls @ 100 mls/hr IVPB Q8H-IV [facility] Last Admin: 11/28/16 18:16 Dose: 100 mls/hr Isosorbide Mononitrate (Imdur -) 60 mg PO DAILY [facility] Last Admin: 11/28/16 09:31 Dose: 60 mg Spironolactone (Aldactone -) 25 mg PO DAILY [facility] Last Admin: 11/28/16 09:31 Dose: 25 mg - Objective Vital Signs: Vital Signs Temperature 97.5 F L 11/28/16 18:15 Pulse Rate 53 L 11/28/16 18:15 Respiratory Rate 20 11/28/16 18:15 Blood Pressure 169/75 11/28/16 18:15 O2 Sat by Pulse Oximetry (%) 98 11/28/16 10:00 Constitutional: Yes: No Distress Neck: Yes: Supple Cardiovascular: Yes: WNL, Regular Rate and Rhythm Respiratory: Yes: WNL, Regular, CTA Bilaterally Gastrointestinal: Yes: WNL, Normal Bowel Sounds, Soft Labs: CBC, BMP 11/28/16 06:00 11/28/16 06:00 INR, PTT INR 1.25 (0.82-1.09) H 11/27/16 21:35 Fibrinogen 189.0 mg/dL (238-498) L 11/28/16 06:00 Problem List - Problems (1) Chest pain Code(s): R07.9 - CHEST PAIN, UNSPECIFIED Qualifiers: Chest pain type: unspecified Qualified Code(s): R07.9 - Chest pain, unspecified (2) Hypertension Code(s): I10 - ESSENTIAL (PRIMARY) HYPERTENSION (3) Anxiety and depression Code(s): F41.9 - ANXIETY DISORDER, UNSPECIFIED F32.9 - MAJOR DEPRESSIVE DISORDER, SINGLE EPISODE, UNSPECIFIED
[2016-11-29] MEDS: PIPERACILLIN/TAZOB 3.375 GM 50 ML IVPB SCH ×3 (01:21→17:14)
[2016-11-29 06:41] LABS: HEMATOCRIT 33.9 % (34.0-46.6)
[2016-11-29] MEDS: ASPIRIN COATED 81 MG TABLET.EC PO SCH (09:03)
[2016-11-29] MEDS: SPIRONOLACTONE 25 MG TABLET (FP) PO SCH (09:03)
[2016-11-29] MEDS: ESCITALOPRAM OXALATE 10 MG TABLET (FP) PO SCH (09:03)
[2016-11-29] MEDS: ISOSORBIDE MONONITRATE 60 MG TAB.SR.24H (FP) PO SCH (09:03)
[2016-11-29] MEDS: CARVEDILOL 6.25 MG TABLET (FP) PO SCH ×2 (09:03→21:07)
--- NOTE | 2016-11-29 11:06 | PN ---
Progress Note, Physician History of Present Illness: seen and examined today in [facility]. no overnight events. no new complaints - Current Medication List Current Medications: Active Medications Acetaminophen (Tylenol -) 650 mg PO Q6H PRN PRN Reason: FEVER OR PAIN Aspirin (Ecotrin -) 81 mg PO DAILY [facility] Last Admin: 11/29/16 09:03 Dose: 81 mg Carvedilol (Coreg -) 6.25 mg PO BID [facility] Last Admin: 11/29/16 09:03 Dose: 6.25 mg Escitalopram Oxalate (Lexapro -) 10 mg PO DAILY [facility] Last Admin: 11/29/16 09:03 Dose: 10 mg Piperacillin Sod/Tazobactam Sod (Zosyn 3.375gm Ivpb (Pre-Docked)) 50 mls @ 100 mls/hr IVPB Q8H-IV [facility] Last Admin: 11/29/16 09:04 Dose: 100 mls/hr Isosorbide Mononitrate (Imdur -) 60 mg PO DAILY [facility] Last Admin: 11/29/16 09:03 Dose: 60 mg Spironolactone (Aldactone -) 25 mg PO DAILY [facility] Last Admin: 11/29/16 09:03 Dose: 25 mg - Objective Vital Signs: Vital Signs Temperature 98.1 F 11/29/16 06:00 Pulse Rate 55 L 11/29/16 06:00 Respiratory Rate 18 11/29/16 08:57 Blood Pressure 167/69 11/29/16 06:00 O2 Sat by Pulse Oximetry (%) 98 11/29/16 08:57 Constitutional: Yes: Well Nourished, No Distress, Calm Eyes: Yes: WNL, Conjunctiva Clear, EOM Intact, PERRL HENT: Yes: WNL, Atraumatic, Normocephalic Neck: Yes: WNL, Supple, Trachea Midline Cardiovascular: Yes: WNL, Regular Rate and Rhythm, S1, S2. No: Bradycardia, Tachycardia, Pulse Irregular, Bruit, JVD, Gallop, Murmur, Rub, S3, S4, Varicosities Respiratory: Yes: WNL, Regular, CTA Bilaterally. No: Rales, Rhonchi, Wheezes Gastrointestinal: Yes: WNL, Normal Bowel Sounds, Soft. No: Distention, Tenderness Musculoskeletal: Yes: WNL Extremities: Yes: WNL Edema: No Peripheral Pulses WNL: Yes Peripheral Pulses: Left Doralis Pedis: 2+, Right Dorsalis Pedis: 2+ Integumentary: Yes: WNL Neurological: Yes: WNL, Alert, Oriented, Cran Nerves II-XII Intact ...Motor Strength: WNL Psychiatric: Yes: WNL, Alert, Oriented Labs: CBC, BMP 11/28/16 06:00 11/28/16 06:00 INR, PTT INR 1.25 (0.82-1.09) H 11/27/16 21:35 Fibrinogen 189.0 mg/dL (238-498) L 11/28/16 06:00 - ....Imaging Chest X-ray: Report Reviewed, Image Reviewed EKG: Report Reviewed, Image Reviewed Other: Report Reviewed, Image Reviewed (tele-sinus bradycardia otherwise no sig arrhythmia) Problem List - Problems (1) Chest pain Code(s): R07.9 - CHEST PAIN, UNSPECIFIED Qualifiers: Chest pain type: unspecified Qualified Code(s): R07.9 - Chest pain, unspecified (2) Hypertension Code(s): I10 - ESSENTIAL (PRIMARY) HYPERTENSION (3) Pancytopenia Code(s): D61.818 - OTHER PANCYTOPENIA (4) S/P coronary artery stent placement Code(s): Z95.5 - PRESENCE OF CORONARY ANGIOPLASTY IMPLANT AND GRAFT (5) Systolic CHF Code(s): I50.20 - UNSPECIFIED SYSTOLIC (CONGESTIVE) HEART FAILURE Assessment/Plan Chest pain-atypical, h/o stents but unknown details -symptoms resolved -cardiac enzymes wnl -echo showed mildly reduced LV function with anteroseptal and apical hypokinesis , mod AR, mild MR/TR/GA -cont asa, coreg, imdur -plan to hold ASA if plt count drops below 45,000 Chronic systolic CHF -currently euvolemic -cont current medical regimen -clarify why not on HARRISON-I or ARB and start if no contraindication HTN-above goal at times but overall adequately controlled for now -cont current medical regimen for now -clarify why not on HARRISON-I or ARB and start if no contraindication Pancytopenia -Hematology following
--- NOTE | 2016-11-29 15:46 | PN ---
Progress Note, Physician History of Present Illness: stable no new issues - Current Medication List Current Medications: Active Medications Acetaminophen (Tylenol -) 650 mg PO Q6H PRN PRN Reason: FEVER OR PAIN Aspirin (Ecotrin -) 81 mg PO DAILY [facility] Last Admin: 11/29/16 09:03 Dose: 81 mg Carvedilol (Coreg -) 6.25 mg PO BID [facility] Last Admin: 11/29/16 09:03 Dose: 6.25 mg Escitalopram Oxalate (Lexapro -) 10 mg PO DAILY [facility] Last Admin: 11/29/16 09:03 Dose: 10 mg Piperacillin Sod/Tazobactam Sod (Zosyn 3.375gm Ivpb (Pre-Docked)) 50 mls @ 100 mls/hr IVPB Q8H-IV [facility] Last Admin: 11/29/16 09:04 Dose: 100 mls/hr Isosorbide Mononitrate (Imdur -) 60 mg PO DAILY [facility] Last Admin: 11/29/16 09:03 Dose: 60 mg Spironolactone (Aldactone -) 25 mg PO DAILY [facility] Last Admin: 11/29/16 09:03 Dose: 25 mg - Objective Vital Signs: Vital Signs Temperature 97.8 F 11/29/16 14:35 Pulse Rate 65 11/29/16 14:35 Respiratory Rate 18 11/29/16 14:35 Blood Pressure 122/61 11/29/16 14:35 O2 Sat by Pulse Oximetry (%) 98 11/29/16 08:57 Constitutional: Yes: No Distress, Calm Cardiovascular: Yes: Regular Rate and Rhythm Respiratory: Yes: Regular, CTA Bilaterally Gastrointestinal: Yes: Normal Bowel Sounds, Soft Extremities: Yes: WNL Neurological: Yes: Alert, Oriented Labs: CBC, BMP 11/28/16 06:00 11/28/16 06:00 INR, PTT INR 1.25 (0.82-1.09) H 11/27/16 21:35 Fibrinogen 189.0 mg/dL (238-498) L 11/28/16 06:00 Assessment/Plan Problem List - Problems (1) Chest pain Code(s): R07.9 - CHEST PAIN, UNSPECIFIED Qualifiers: Chest pain type: unspecified Qualified Code(s): R07.9 - Chest pain, unspecified (2) Hypomagnesemial. Code(s): E83.42 - HYPOMAGNESEMIA (4) Leukopenia Code(s): D72.819 - DECREASED WHITE BLOOD CELL COUNT, UNSPECIFIED (5) Hypertension Code(s): I10 - ESSENTIAL (PRIMARY) HYPERTENSION (6) S/P coronary artery stent placement Code(s): Z95.5 - PRESENCE OF CORONARY ANGIOPLASTY IMPLANT AND GRAFT (7) Anxiety and depression Code(s): F41.9 - ANXIETY DISORDER, UNSPECIFIED F32.9 - MAJOR DEPRESSIVE DISORDER, SINGLE EPISODE, UNSPE uti neutropenia plan ct current mgmt will await for final path
[2016-11-29 16:09] LABS: IGG IMMUNOGLOBULIN 2688 mg/dL (700-1600); IGM IMMUNOGLOBULIN 82 mg/dL (26-217)
--- NOTE | 2016-11-29 16:11 | PN ---
Progress Note, Physician History of Present Illness: Pt states that she has had low plts in the past. Pt was also treated for HEP C about 1-2 yrs ago - Current Medication List Current Medications: Active Medications Acetaminophen (Tylenol -) 650 mg PO Q6H PRN PRN Reason: FEVER OR PAIN Aspirin (Ecotrin -) 81 mg PO DAILY [facility] Last Admin: 11/29/16 09:03 Dose: 81 mg Carvedilol (Coreg -) 6.25 mg PO BID [facility] Last Admin: 11/29/16 09:03 Dose: 6.25 mg Escitalopram Oxalate (Lexapro -) 10 mg PO DAILY [facility] Last Admin: 11/29/16 09:03 Dose: 10 mg Piperacillin Sod/Tazobactam Sod (Zosyn 3.375gm Ivpb (Pre-Docked)) 50 mls @ 100 mls/hr IVPB Q8H-IV [facility] Last Admin: 11/29/16 09:04 Dose: 100 mls/hr Isosorbide Mononitrate (Imdur -) 60 mg PO DAILY [facility] Last Admin: 11/29/16 09:03 Dose: 60 mg Spironolactone (Aldactone -) 25 mg PO DAILY [facility] Last Admin: 11/29/16 09:03 Dose: 25 mg - Objective Vital Signs: Vital Signs Temperature 97.8 F 11/29/16 14:35 Pulse Rate 65 11/29/16 14:35 Respiratory Rate 18 11/29/16 14:35 Blood Pressure 122/61 11/29/16 14:35 O2 Sat by Pulse Oximetry (%) 98 11/29/16 08:57 Constitutional: Yes: No Distress Neck: Yes: Supple Cardiovascular: Yes: WNL, Regular Rate and Rhythm Respiratory: Yes: WNL, Regular, CTA Bilaterally Gastrointestinal: Yes: WNL, Normal Bowel Sounds, Soft Labs: CBC, BMP 11/28/16 06:00 11/28/16 06:00 INR, PTT INR 1.25 (0.82-1.09) H 11/27/16 21:35 Fibrinogen 189.0 mg/dL (238-498) L 11/28/16 06:00 Problem List - Problems (1) Leukopenia Assessment/Plan: Pt w/ pancytopenia W/U in progress including for DIC Due to hep C ? As per heme if plts <45,000 will dc asa Cont to follow WBC Code(s): D72.819 - DECREASED WHITE BLOOD CELL COUNT, UNSPECIFIED (2) Chest pain Assessment/Plan: Echo noted BP stable Code(s): R07.9 - CHEST PAIN, UNSPECIFIED Qualifiers: Chest pain type: unspecified Qualified Code(s): R07.9 - Chest pain, unspecified (3) Hypertension Assessment/Plan: BP stable Cont coreg/imdur/spironolactone Code(s): I10 - ESSENTIAL (PRIMARY) HYPERTENSION (4) Anxiety and depression Assessment/Plan: Cont lexpro Code(s): F41.9 - ANXIETY DISORDER, UNSPECIFIED F32.9 - MAJOR DEPRESSIVE DISORDER, SINGLE EPISODE, UNSPECIFIED Assessment/Plan 1. UTI Due to E.Coli Cont IV zosyn
[2016-11-29 17:24] LABS: CREATININE 1.1 mg/dL (0.55-1.02)
[2016-11-29 17:25] LABS: ALBUMIN 2.8 g/dl (3.4-5.0); BILIRUBIN,TOTAL 0.4 mg/dL (0.2-1.0); CALCIUM 8.8 mg/dL (8.5-10.1); TOT PROT 7.5 g/dl (6.4-8.2)
[2016-11-29 18:03] LABS: BASOPHIL 0.1 % (0-2.0); EOSINOPHIL 0.3 % (0-4.5); MCH 29.4 pg (25.7-33.7); MCHC 31.8 g/dl (32.0-36.0); MEAN CELL VOLUME 92.4 fl (80-96); NEUTROPHILS 55.6 % (42.8-82.8); PLATELET COUNT 54 K/MM3 (134-434); WHITE BLOOD COUNT 2.6 K/mm3 (4.0-10.0)
--- NOTE | 2016-11-29 18:39 | PN ---
Progress Note (short form) - Note Progress Note: PAtient seen and examined Denies any complaints Last Vital Signs Temp Pulse Resp BP Pulse Ox 97.8 F 65 18 122/61 98 11/29/16 14:35 11/29/16 14:35 11/29/16 14:35 11/29/16 14:35 11/29/16 08:57 Cor: RSR, No murmurs, No gallops Lungs: Clear to P&A Abd: Soft, Normal bowel sounds, No organomegaly Ext:No significant edema Skin: No rashes, Integument intact Abnormal Lab Results 11/28/16 11/28/16 11/28/16 06:00 06:00 06:00 WBC Hct 33.9 L MCHC Plt Count Monocytes % Haptoglobin 27 L Anion Gap Creatinine Albumin IgG 2688 H 11/29/16 11/29/16 16:20 16:20 WBC 2.6 L Hct MCHC 31.8 L Plt Count 54 L Monocytes % 12.1 H Haptoglobin Anion Gap 6 L Creatinine 1.1 H D Albumin 2.8 L IgG Current Medications Acetaminophen (Tylenol -) 650 mg PO Q6H PRN PRN Reason: FEVER OR PAIN Aspirin (Ecotrin -) 81 mg PO DAILY [facility] Last Admin: 11/29/16 09:03 Dose: 81 mg Carvedilol (Coreg -) 6.25 mg PO BID [facility] Last Admin: 11/29/16 09:03 Dose: 6.25 mg Escitalopram Oxalate (Lexapro -) 10 mg PO DAILY [facility] Last Admin: 11/29/16 09:03 Dose: 10 mg Piperacillin Sod/Tazobactam Sod (Zosyn 3.375gm Ivpb (Pre-Docked)) 50 mls @ 100 mls/hr IVPB Q8H-IV [facility] Last Admin: 11/29/16 17:14 Dose: 100 mls/hr Isosorbide Mononitrate (Imdur -) 60 mg PO DAILY [facility] Last Admin: 11/29/16 09:03 Dose: 60 mg Spironolactone (Aldactone -) 25 mg PO DAILY [facility] Last Admin: 11/29/16 09:03 Dose: 25 mg A/P 81 y/o patient with h/o CAD, s/p stents, anxiety, depression, comes in with chest tightness. Noted to be pancytopenic. ? UTI Pancytopenia ---check cultures/given recewnt UTI and antibiotic use--check urine cx B12/folate/TSH/fT4--nl u/s pending concern for low grade DIC given low fbrinogen/platelets may need to hold ASA if they drop [place] [id number] Reverse AAG ratio--check protein studies
[2016-11-30] MEDS: PIPERACILLIN/TAZOB 3.375 GM 50 ML IVPB SCH ×3 (01:21→17:31)
[2016-11-30 07:14] LABS: BASOPHIL 0.2 % (0-2.0); EOSINOPHIL 0.7 % (0-4.5); MCH 29.9 pg (25.7-33.7); MCHC 32.5 g/dl (32.0-36.0); MEAN CELL VOLUME 91.9 fl (80-96); MEAN PLT VOLUME 10.5 fl (7.5-11.1); NEUTROPHILS 43.2 % (42.8-82.8); PLATELET COUNT 55 K/MM3 (134-434); RDW 15.1 % (11.6-15.6); WHITE BLOOD COUNT 2.6 K/mm3 (4.0-10.0)
[2016-11-30 07:47] LABS: BILIRUBIN,TOTAL 0.5 mg/dL (0.2-1.0); CALCIUM 9.2 mg/dL (8.5-10.1); TOT PROT 7.5 g/dl (6.4-8.2)
[2016-11-30] MEDS: ISOSORBIDE MONONITRATE 60 MG TAB.SR.24H (FP) PO SCH (10:14)
[2016-11-30] MEDS: CARVEDILOL 6.25 MG TABLET (FP) PO SCH ×2 (10:14→21:16)
[2016-11-30] MEDS: ASPIRIN COATED 81 MG TABLET.EC PO SCH (10:14)
[2016-11-30] MEDS: SPIRONOLACTONE 25 MG TABLET (FP) PO SCH (10:14)
[2016-11-30] MEDS: ESCITALOPRAM OXALATE 10 MG TABLET (FP) PO SCH (10:14)
--- NOTE | 2016-11-30 11:27 | PN ---
Progress Note, Physician History of Present Illness: seen and examined today in [facility]. feeling slightly dizzy sitting on side of bed, laid back in bed and felt better. no overnight events. - Current Medication List Current Medications: Active Medications Acetaminophen (Tylenol -) 650 mg PO Q6H PRN PRN Reason: FEVER OR PAIN Aspirin (Ecotrin -) 81 mg PO DAILY [facility] Last Admin: 11/30/16 10:14 Dose: 81 mg Carvedilol (Coreg -) 6.25 mg PO BID [facility] Last Admin: 11/30/16 10:14 Dose: 6.25 mg Escitalopram Oxalate (Lexapro -) 10 mg PO DAILY [facility] Last Admin: 11/30/16 10:14 Dose: 10 mg Piperacillin Sod/Tazobactam Sod (Zosyn 3.375gm Ivpb (Pre-Docked)) 50 mls @ 100 mls/hr IVPB Q8H-IV [facility] Last Admin: 11/30/16 10:14 Dose: 100 mls/hr Isosorbide Mononitrate (Imdur -) 60 mg PO DAILY [facility] Last Admin: 11/30/16 10:14 Dose: 60 mg Spironolactone (Aldactone -) 25 mg PO DAILY [facility] Last Admin: 11/30/16 10:14 Dose: 25 mg - Objective Vital Signs: Vital Signs Temperature 98.1 F 11/30/16 06:00 Pulse Rate 53 L 11/30/16 06:00 Respiratory Rate 18 11/30/16 06:00 Blood Pressure 148/68 11/30/16 06:00 O2 Sat by Pulse Oximetry (%) 98 11/29/16 21:00 Constitutional: Yes: Well Nourished, No Distress, Calm Eyes: Yes: WNL, Conjunctiva Clear, EOM Intact, PERRL HENT: Yes: WNL, Atraumatic, Normocephalic Neck: Yes: WNL, Supple, Trachea Midline Cardiovascular: Yes: Regular Rate and Rhythm, S1, S2. No: Bradycardia, Tachycardia, Pulse Irregular, Bruit, JVD, Gallop, Murmur, Rub, S3, S4, Varicosities Respiratory: Yes: WNL, Regular, CTA Bilaterally. No: Rales, Rhonchi, Wheezes Gastrointestinal: Yes: WNL, Normal Bowel Sounds, Soft. No: Distention, Tenderness Musculoskeletal: Yes: WNL Extremities: Yes: WNL Edema: No Peripheral Pulses WNL: Yes Peripheral Pulses: Left Doralis Pedis: 2+, Right Dorsalis Pedis: 2+ Integumentary: Yes: WNL Neurological: Yes: WNL, Alert, Oriented, Cran Nerves II-XII Intact ...Motor Strength: WNL Psychiatric: Yes: WNL, Alert, Oriented Labs: CBC, BMP 11/30/16 05:40 11/30/16 05:40 INR, PTT INR 1.25 (0.82-1.09) H 11/27/16 21:35 Fibrinogen 189.0 mg/dL (238-498) L 11/28/16 06:00 - ....Imaging Chest X-ray: Report Reviewed, Image Reviewed EKG: Report Reviewed, Image Reviewed Other: Report Reviewed, Image Reviewed (tele-nsr, sinus bradycardia, no sig arrhythmia) Problem List - Problems (1) Chest pain Code(s): R07.9 - CHEST PAIN, UNSPECIFIED Qualifiers: Chest pain type: unspecified Qualified Code(s): R07.9 - Chest pain, unspecified (2) Hypertension Code(s): I10 - ESSENTIAL (PRIMARY) HYPERTENSION (3) Pancytopenia Code(s): D61.818 - OTHER PANCYTOPENIA (4) S/P coronary artery stent placement Code(s): Z95.5 - PRESENCE OF CORONARY ANGIOPLASTY IMPLANT AND GRAFT (5) Systolic CHF Code(s): I50.20 - UNSPECIFIED SYSTOLIC (CONGESTIVE) HEART FAILURE Assessment/Plan Chest pain-atypical, h/o stents but unknown details -symptoms resolved -cardiac enzymes wnl -echo showed mildly reduced LV function with anteroseptal and apical hypokinesis , mod AR, mild MR/TR/PA -cont asa, coreg, imdur -plan to hold ASA if plt count drops below 45,000 Chronic systolic CHF -currently euvolemic -does not require diuresis -cont current medical regimen -clarify why not on HARRISON-I or ARB and start if no contraindication HTN-above goal at times but overall adequately controlled for now -cont current medical regimen for now -clarify why not on HARRISON-I or ARB and start if no contraindication Pancytopenia -Hematology following Dizziness-mild, possible dehydration based on labs -encourage po hydration, IVF if inadequate po intake
--- NOTE | 2016-11-30 13:50 | PN ---
Progress Note (short form) - Note Progress Note: PAtient seen and examined Denies any complaints Last Vital Signs Temp Pulse Resp BP Pulse Ox 97.8 F 65 18 122/61 98 11/29/16 14:35 11/29/16 14:35 11/29/16 14:35 11/29/16 14:35 11/29/16 08:57 Cor: RSR, No murmurs, No gallops Lungs: Clear to P&A Abd: Soft, Normal bowel sounds, No organomegaly Ext:No significant edema Skin: No rashes, Integument intact Abnormal Lab Results 11/28/16 11/28/16 11/28/16 06:00 06:00 06:00 WBC Hct 33.9 L MCHC Plt Count Monocytes % Haptoglobin 27 L Anion Gap Creatinine Albumin IgG 2688 H 11/29/16 11/29/16 16:20 16:20 WBC 2.6 L Hct MCHC 31.8 L Plt Count 54 L Monocytes % 12.1 H Haptoglobin Anion Gap 6 L Creatinine 1.1 H D Albumin 2.8 L IgG Current Medications Acetaminophen (Tylenol -) 650 mg PO Q6H PRN PRN Reason: FEVER OR PAIN Aspirin (Ecotrin -) 81 mg PO DAILY [facility] Last Admin: 11/29/16 09:03 Dose: 81 mg Carvedilol (Coreg -) 6.25 mg PO BID [facility] Last Admin: 11/29/16 09:03 Dose: 6.25 mg Escitalopram Oxalate (Lexapro -) 10 mg PO DAILY [facility] Last Admin: 11/29/16 09:03 Dose: 10 mg Piperacillin Sod/Tazobactam Sod (Zosyn 3.375gm Ivpb (Pre-Docked)) 50 mls @ 100 mls/hr IVPB Q8H-IV [facility] Last Admin: 11/29/16 17:14 Dose: 100 mls/hr Isosorbide Mononitrate (Imdur -) 60 mg PO DAILY [facility] Last Admin: 11/29/16 09:03 Dose: 60 mg Spironolactone (Aldactone -) 25 mg PO DAILY [facility] Last Admin: 11/29/16 09:03 Dose: 25 mg A/P 81 y/o patient with h/o CAD, s/p stents, anxiety, depression, comes in with chest tightness. Noted to be pancytopenic. ? UTI Pancytopenia --- B12/folate/TSH/fT4--nl u/s --possible cirrhosis of liver Patient gives h/o hep. C and therapy for hep.C Suspect pancytopenia is from Hep. C related liver disease Monitor the counts will get GI consult
--- NOTE | 2016-11-30 21:45 | PN ---
Progress Note, Physician History of Present Illness: No new complaints - Current Medication List Current Medications: Active Medications Acetaminophen (Tylenol -) 650 mg PO Q6H PRN PRN Reason: FEVER OR PAIN Aspirin (Ecotrin -) 81 mg PO DAILY [facility] Last Admin: 11/30/16 10:14 Dose: 81 mg Carvedilol (Coreg -) 6.25 mg PO BID [facility] Last Admin: 11/30/16 21:16 Dose: 6.25 mg Escitalopram Oxalate (Lexapro -) 10 mg PO DAILY [facility] Last Admin: 11/30/16 10:14 Dose: 10 mg Piperacillin Sod/Tazobactam Sod (Zosyn 3.375gm Ivpb (Pre-Docked)) 50 mls @ 100 mls/hr IVPB Q8H-IV [facility] Last Admin: 11/30/16 17:31 Dose: 100 mls/hr Isosorbide Mononitrate (Imdur -) 60 mg PO DAILY [facility] Last Admin: 11/30/16 10:14 Dose: 60 mg Spironolactone (Aldactone -) 25 mg PO DAILY [facility] Last Admin: 11/30/16 10:14 Dose: 25 mg - Objective Vital Signs: Vital Signs Temperature 97.9 F 11/30/16 20:53 Pulse Rate 54 L 11/30/16 20:53 Respiratory Rate 18 11/30/16 20:53 Blood Pressure 119/52 11/30/16 20:53 O2 Sat by Pulse Oximetry (%) 98 11/30/16 09:00 Constitutional: Yes: Calm Neck: Yes: Supple Cardiovascular: Yes: WNL, Regular Rate and Rhythm Respiratory: Yes: WNL, Regular, CTA Bilaterally Gastrointestinal: Yes: WNL, Normal Bowel Sounds, Soft Labs: CBC, BMP 11/30/16 05:40 11/30/16 05:40 INR, PTT INR 1.25 (0.82-1.09) H 11/27/16 21:35 Fibrinogen 189.0 mg/dL (238-498) L 11/28/16 06:00 Problem List - Problems (1) Leukopenia Assessment/Plan: Pt w/ pancytopenia W/U in progress including for DIC Due to hep C ? As per heme if plts <45,000 will dc asa Counts have improved slightly Code(s): D72.819 - DECREASED WHITE BLOOD CELL COUNT, UNSPECIFIED (2) Hypertension Code(s): I10 - ESSENTIAL (PRIMARY) HYPERTENSION (3) Anxiety and depression Code(s): F41.9 - ANXIETY DISORDER, UNSPECIFIED F32.9 - MAJOR DEPRESSIVE DISORDER, SINGLE EPISODE, UNSPECIFIED (4) Chest pain Assessment/Plan: Echo noted BP stable Code(s): R07.9 - CHEST PAIN, UNSPECIFIED Qualifiers: Chest pain type: unspecified Qualified Code(s): R07.9 - Chest pain, unspecified
[2016-12-01] MEDS: PIPERACILLIN/TAZOB 3.375 GM 50 ML IVPB SCH ×3 (02:55→18:20)
[2016-12-01 07:50] LABS: MCH 30.3 pg (25.7-33.7); MCHC 32.8 g/dl (32.0-36.0); MEAN CELL VOLUME 92.5 fl (80-96); MEAN PLT VOLUME 10.2 fl (7.5-11.1); PLATELET COUNT 53 K/MM3 (134-434); RDW 15.1 % (11.6-15.6); WHITE BLOOD COUNT 2.1 K/mm3 (4.0-10.0)
[2016-12-01 08:22] LABS: BILIRUBIN,TOTAL 0.4 mg/dL (0.2-1.0); CALCIUM 9.1 mg/dL (8.5-10.1); TOT PROT 7.4 g/dl (6.4-8.2)
[2016-12-01] MEDS: SPIRONOLACTONE 25 MG TABLET (FP) PO SCH (09:30)
[2016-12-01] MEDS: ISOSORBIDE MONONITRATE 60 MG TAB.SR.24H (FP) PO SCH (09:30)
[2016-12-01] MEDS: ASPIRIN COATED 81 MG TABLET.EC PO SCH (09:30)
[2016-12-01] MEDS: CARVEDILOL 6.25 MG TABLET (FP) PO SCH ×2 (09:30→21:02)
[2016-12-01] MEDS: ESCITALOPRAM OXALATE 10 MG TABLET (FP) PO SCH (09:30)
--- NOTE | 2016-12-01 11:00 | PN ---
Progress Note, Physician - Current Medication List Current Medications: Active Medications Acetaminophen (Tylenol -) 650 mg PO Q6H PRN PRN Reason: FEVER OR PAIN Aspirin (Ecotrin -) 81 mg PO DAILY [facility] Last Admin: 12/01/16 09:30 Dose: 81 mg Carvedilol (Coreg -) 6.25 mg PO BID [facility] Last Admin: 12/01/16 09:30 Dose: 6.25 mg Escitalopram Oxalate (Lexapro -) 10 mg PO DAILY [facility] Last Admin: 12/01/16 09:30 Dose: 10 mg Piperacillin Sod/Tazobactam Sod (Zosyn 3.375gm Ivpb (Pre-Docked)) 50 mls @ 100 mls/hr IVPB Q8H-IV [facility] Last Admin: 12/01/16 09:30 Dose: 100 mls/hr Isosorbide Mononitrate (Imdur -) 60 mg PO DAILY [facility] Last Admin: 12/01/16 09:30 Dose: 60 mg Spironolactone (Aldactone -) 25 mg PO DAILY [facility] Last Admin: 12/01/16 09:30 Dose: 25 mg - Objective Vital Signs: Vital Signs Temperature 97.4 F L 12/01/16 09:00 Pulse Rate 61 12/01/16 09:00 Respiratory Rate 18 12/01/16 09:00 Blood Pressure 140/72 12/01/16 09:00 O2 Sat by Pulse Oximetry (%) 95 12/01/16 09:00 Labs: CBC, BMP 12/01/16 06:50 12/01/16 06:50 INR, PTT INR 1.25 (0.82-1.09) H 11/27/16 21:35 Fibrinogen 189.0 mg/dL (238-498) L 11/28/16 06:00
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
[2016-12-01] MEDS: LISINOPRIL 5 MG TABLET (FP) PO SCH (11:38)
[2016-12-01 11:56] LABS: MAGNESIUM 1.6 mg/dL (1.8-2.4)
[2016-12-01] MEDS ORDERED: MAGNESIUM SULF 50% (8.12 MEQ/2 ML-1 GM VIAL) IVPB ONE (12:30)
--- NOTE | 2016-12-01 12:59 | CONSULT ---
Consult Consult Specialty:: gastroenterology Reason for Consultation:: r/o liver disease - History of Present Illness History of Present Illness: 81 female was admitted because of atypical chest pain. On routine labs,she was noted to have pancytopenia and thrombocytopenia associated with irregula liver by ultrasound. 2 d echo revealed mild TR and MR, elevated IgG but ELLY and viral titers pending. - Past Medical History [employer]: Yes: CVA Cardio/Vascular: Yes: HTN ...: No Psych: Yes: Anxiety, Depression - Past Surgical History Past Surgical History: Yes: None, Stent ("six" coronary stents) - Alcohol/Substance Use Hx Alcohol Use: No - Smoking History Smoking history: Never smoked Home Medications - Allergies Allergies/Adverse Reactions: Allergies Allergy/AdvReac Type Severity Reaction Status Date / Time No Known Allergies Allergy Verified 11/26/16 08:13 - Home Medications Home Medications: Ambulatory Orders Carvedilol [Coreg] 6.25 mg PO BID 11/26/16 Ciprofloxacin [Cipro (Restricted To Id)] 0 mg PO Q12H 11/26/16 Escitalopram Oxalate [Lexapro -] 0 mg PO DAILY 11/26/16 Isosorbide Mononitrate [Imdur -] 60 mg PO DAILY 11/26/16 Spironolactone mg PO DAILY 11/26/16 Physical Exam-GI Vital Signs: Vital Signs Temperature 97.4 F L 12/01/16 09:00 Pulse Rate 61 12/01/16 09:00 Respiratory Rate 18 12/01/16 09:00 Blood Pressure 140/72 12/01/16 09:00 O2 Sat by Pulse Oximetry (%) 95 12/01/16 09:00 Constitutional: Yes: Well Nourished Eyes: Yes: Conjunctiva Clear HENT: Yes: Atraumatic Neck: Yes: Supple Cardiovascular: Yes: Regular Rate and Rhythm Respiratory: Yes: CTA Bilaterally ...Palpate: Yes: Soft. No: Firm/Rigid, Guarding, Hepatomegaly, Mass, Pulsatile Mass, Splenomegaly, Tenderness Edema: No Labs: CBC, BMP 12/01/16 06:50 12/01/16 06:50 INR, PTT INR 1.25 (0.82-1.09) H 11/27/16 21:35 Fibrinogen 189.0 mg/dL (238-498) L 11/28/16 06:00 Hepatic Panel Total Bilirubin 0.4 mg/dL (0.2-1.0) 12/01/16 06:50 AST 28 U/L (15-37) 12/01/16 06:50 ALT 21 U/L (12-78) 12/01/16 06:50 Alkaline Phosphatase 64 U/L (45-117) 12/01/16 06:50 Albumin 3.0 g/dl (3.4-5.0) L 12/01/16 06:50 Problem List - Problems (1) Idiopathic cirrhosis Assessment/Plan: R> made aware to ff-up, liver w/u as an outpatient AFP if not done recently please advise to ff up as an outpatient Code(s): K74.60 - UNSPECIFIED CIRRHOSIS OF LIVER
--- NOTE | 2016-12-01 14:55 | PN ---
Progress Note, Physician History of Present Illness: stable no new events - Current Medication List Current Medications: Active Medications Acetaminophen (Tylenol -) 650 mg PO Q6H PRN PRN Reason: FEVER OR PAIN Aspirin (Ecotrin -) 81 mg PO DAILY [facility] Last Admin: 12/01/16 09:30 Dose: 81 mg Carvedilol (Coreg -) 6.25 mg PO BID [facility] Last Admin: 12/01/16 09:30 Dose: 6.25 mg Escitalopram Oxalate (Lexapro -) 10 mg PO DAILY [facility] Last Admin: 12/01/16 09:30 Dose: 10 mg Piperacillin Sod/Tazobactam Sod (Zosyn 3.375gm Ivpb (Pre-Docked)) 50 mls @ 100 mls/hr IVPB Q8H-IV [facility] Last Admin: 12/01/16 09:30 Dose: 100 mls/hr Isosorbide Mononitrate (Imdur -) 60 mg PO DAILY [facility] Last Admin: 12/01/16 09:30 Dose: 60 mg Lisinopril (Prinivil) 2.5 mg PO DAILY [facility] Last Admin: 12/01/16 11:38 Dose: 2.5 mg Spironolactone (Aldactone -) 25 mg PO DAILY [facility] Last Admin: 12/01/16 09:30 Dose: 25 mg - Objective Vital Signs: Vital Signs Temperature 97.4 F L 12/01/16 09:00 Pulse Rate 61 12/01/16 09:00 Respiratory Rate 18 12/01/16 09:00 Blood Pressure 140/72 12/01/16 09:00 O2 Sat by Pulse Oximetry (%) 95 12/01/16 09:00 Constitutional: Yes: No Distress, Calm Neck: Yes: Supple, Trachea Midline Cardiovascular: Yes: Regular Rate and Rhythm Respiratory: Yes: Regular, CTA Bilaterally Gastrointestinal: Yes: Normal Bowel Sounds, Soft Musculoskeletal: Yes: WNL Extremities: Yes: WNL Neurological: Yes: Alert, Oriented Psychiatric: Yes: Alert Labs: CBC, BMP 12/01/16 06:50 12/01/16 06:50 INR, PTT INR 1.25 (0.82-1.09) H 11/27/16 21:35 Fibrinogen 189.0 mg/dL (238-498) L 11/28/16 06:00 Assessment/Plan Problem List - Problems (1) Chest pain Code(s): R07.9 - CHEST PAIN, UNSPECIFIED Qualifiers: Chest pain type: unspecified Qualified Code(s): R07.9 - Chest pain, unspecified (2) Hypomagnesemial. Code(s): E83.42 - HYPOMAGNESEMIA (4) Leukopenia Code(s): D72.819 - DECREASED WHITE BLOOD CELL COUNT, UNSPECIFIED (5) Hypertension Code(s): I10 - ESSENTIAL (PRIMARY) HYPERTENSION (6) S/P coronary artery stent placement Code(s): Z95.5 - PRESENCE OF CORONARY ANGIOPLASTY IMPLANT AND GRAFT (7) Anxiety and depression Code(s): F41.9 - ANXIETY DISORDER, UNSPECIFIED F32.9 - MAJOR DEPRESSIVE DISORDER, SINGLE EPISODE, UNSPE uti neutropenia plan ct abx await for identity
--- NOTE | 2016-12-01 14:56 | PN ---
Progress Note, Physician History of Present Illness: stable no new issues - Current Medication List Current Medications: Active Medications Acetaminophen (Tylenol -) 650 mg PO Q6H PRN PRN Reason: FEVER OR PAIN Aspirin (Ecotrin -) 81 mg PO DAILY [facility] Last Admin: 12/01/16 09:30 Dose: 81 mg Carvedilol (Coreg -) 6.25 mg PO BID [facility] Last Admin: 12/01/16 09:30 Dose: 6.25 mg Escitalopram Oxalate (Lexapro -) 10 mg PO DAILY [facility] Last Admin: 12/01/16 09:30 Dose: 10 mg Piperacillin Sod/Tazobactam Sod (Zosyn 3.375gm Ivpb (Pre-Docked)) 50 mls @ 100 mls/hr IVPB Q8H-IV [facility] Last Admin: 12/01/16 09:30 Dose: 100 mls/hr Isosorbide Mononitrate (Imdur -) 60 mg PO DAILY [facility] Last Admin: 12/01/16 09:30 Dose: 60 mg Lisinopril (Prinivil) 2.5 mg PO DAILY [facility] Last Admin: 12/01/16 11:38 Dose: 2.5 mg Spironolactone (Aldactone -) 25 mg PO DAILY [facility] Last Admin: 12/01/16 09:30 Dose: 25 mg - Objective Vital Signs: Vital Signs Temperature 97.4 F L 12/01/16 09:00 Pulse Rate 61 12/01/16 09:00 Respiratory Rate 18 12/01/16 09:00 Blood Pressure 140/72 12/01/16 09:00 O2 Sat by Pulse Oximetry (%) 95 12/01/16 09:00 Constitutional: Yes: No Distress, Calm Cardiovascular: Yes: Regular Rate and Rhythm Respiratory: Yes: Regular, CTA Bilaterally Gastrointestinal: Yes: Normal Bowel Sounds, Soft Musculoskeletal: Yes: WNL Extremities: Yes: WNL Neurological: Yes: Alert, Oriented Psychiatric: Yes: Alert Labs: CBC, BMP 12/01/16 06:50 12/01/16 06:50 INR, PTT INR 1.25 (0.82-1.09) H 11/27/16 21:35 Fibrinogen 189.0 mg/dL (238-498) L 11/28/16 06:00 Assessment/Plan Problem List - Problems (1) Chest pain Code(s): R07.9 - CHEST PAIN, UNSPECIFIED Qualifiers: Chest pain type: unspecified Qualified Code(s): R07.9 - Chest pain, unspecified (2) Hypomagnesemial. Code(s): E83.42 - HYPOMAGNESEMIA (4) Leukopenia Code(s): D72.819 - DECREASED WHITE BLOOD CELL COUNT, UNSPECIFIED (5) Hypertension Code(s): I10 - ESSENTIAL (PRIMARY) HYPERTENSION (6) S/P coronary artery stent placement Code(s): Z95.5 - PRESENCE OF CORONARY ANGIOPLASTY IMPLANT AND GRAFT (7) Anxiety and depression Code(s): F41.9 - ANXIETY DISORDER, UNSPECIFIED F32.9 - MAJOR DEPRESSIVE DISORDER, SINGLE EPISODE, UNSPE uti neutropenia plan ct abx stop date after tomorrows dose can stop abx
--- NOTE | 2016-12-01 16:30 | PN ---
Progress Note (short form) - Note Progress Note: Patient seen aqnd examined. Reports problem with platelets dating back to time Before Interferon administered while in [place]. At that time , patient was told she had liver disease and cirrhosis. 8 years ago she was treated with Interferon. 2 years ago she was treated with Harvoni. Now with pancytopenia ?? related to cirrhosis, liver disease, and prior treatments. Last Vital Signs Temp Pulse Resp BP Pulse Ox 98.3 F 65 18 120/55 95 12/01/16 15:22 12/01/16 15:22 12/01/16 15:22 12/01/16 15:22 12/01/16 09:00 HEENT: MARCIA, EOM Intact Oropharynx: No thrush, No mucositis Cor: RSR, No murmurs, No gallops Lungs: Clear to P&A Abd: Soft, Normal bowel sounds, No organomegaly Ext:No significant edema Skin: No rashes, Integument intact CBC, BMP 12/01/16 06:50 12/01/16 06:50 Current Medications Generic Name Dose Route Start Last Admin Trade Name Freq PRN Reason Stop Dose Admin Acetaminophen 650 mg 11/27/16 22:33 Tylenol - PO Q6H PRN FEVER OR PAIN Aspirin 81 mg 11/26/16 20:45 12/01/16 09:30 Ecotrin - PO 81 mg DAILY [facility] Administration Carvedilol 6.25 mg 11/26/16 22:00 12/01/16 09:30 Coreg - PO 6.25 mg BID [facility] Administration Escitalopram Oxalate 10 mg 11/27/16 10:00 12/01/16 09:30 Lexapro - PO 10 mg DAILY [facility] Administration Piperacillin Sod/Tazobactam Sod 50 mls @ 100 mls/hr 11/28/16 18:00 12/01/16 09: 30 Zosyn 3.375gm Ivpb (Pre-Docked) IVPB 100 mls/hr Q8H-IV [facility] Administration Isosorbide Mononitrate 60 mg 11/26/16 20:45 12/01/16 09:30 Imdur - PO 60 mg DAILY [facility] Administration Lisinopril 2.5 mg 12/01/16 11:15 12/01/16 11:38 Prinivil PO 2.5 mg DAILY [facility] Administration Spironolactone 25 mg 11/27/16 10:00 12/01/16 09:30 Aldactone - PO 25 mg DAILY [facility] Administration Impression: Pancytopenia?? related to prior underlying liver disease, cirrhosis and prior therapy. Prior history of longstanding liver disease and platelet "problems." Protein studies and Flow studies pending . Has elevated IgG with normal IgA and IgM. Low fibrinogen compatible with underlying liver disease and cirrhosis. Will need GI follow up as hepatitis studies and further liver disease work up pending. May need additional hematology work up in the future pending above test results .
--- NOTE | 2016-12-01 19:58 | PN ---
Progress Note, Physician History of Present Illness: No new complaints - Current Medication List Current Medications: Active Medications Acetaminophen (Tylenol -) 650 mg PO Q6H PRN PRN Reason: FEVER OR PAIN Aspirin (Ecotrin -) 81 mg PO DAILY [facility] Last Admin: 12/01/16 09:30 Dose: 81 mg Carvedilol (Coreg -) 6.25 mg PO BID [facility] Last Admin: 12/01/16 09:30 Dose: 6.25 mg Escitalopram Oxalate (Lexapro -) 10 mg PO DAILY [facility] Last Admin: 12/01/16 09:30 Dose: 10 mg Piperacillin Sod/Tazobactam Sod (Zosyn 3.375gm Ivpb (Pre-Docked)) 50 mls @ 100 mls/hr IVPB Q8H-IV [facility] Last Admin: 12/01/16 18:20 Dose: 100 mls/hr Isosorbide Mononitrate (Imdur -) 60 mg PO DAILY [facility] Last Admin: 12/01/16 09:30 Dose: 60 mg Lisinopril (Prinivil) 2.5 mg PO DAILY [facility] Last Admin: 12/01/16 11:38 Dose: 2.5 mg Spironolactone (Aldactone -) 25 mg PO DAILY [facility] Last Admin: 12/01/16 09:30 Dose: 25 mg - Objective Vital Signs: Vital Signs Temperature 98.3 F 12/01/16 15:22 Pulse Rate 65 12/01/16 15:22 Respiratory Rate 18 12/01/16 15:22 Blood Pressure 120/55 12/01/16 15:22 O2 Sat by Pulse Oximetry (%) 95 12/01/16 09:00 Constitutional: Yes: No Distress Neck: Yes: Supple Cardiovascular: Yes: WNL, Regular Rate and Rhythm Respiratory: Yes: WNL, Regular, CTA Bilaterally Gastrointestinal: Yes: WNL, Normal Bowel Sounds, Soft, Abdomen, Obese Labs: CBC, BMP 12/01/16 06:50 12/01/16 06:50 INR, PTT INR 1.25 (0.82-1.09) H 11/27/16 21:35 Fibrinogen 189.0 mg/dL (238-498) L 11/28/16 06:00 Problem List - Problems (1) Leukopenia Assessment/Plan: DC planning for am after last dose of IV atnibx for UtI Pt w/ pancytopenia Due to hep C ? As per heme if plts <45,000 will dc asa Code(s): D72.819 - DECREASED WHITE BLOOD CELL COUNT, UNSPECIFIED (2) Hypertension Assessment/Plan: BP stable Cont coreg/imdur/spironolactone Code(s): I10 - ESSENTIAL (PRIMARY) HYPERTENSION (3) Anxiety and depression Assessment/Plan: Cont lexpro Code(s): F41.9 - ANXIETY DISORDER, UNSPECIFIED F32.9 - MAJOR DEPRESSIVE DISORDER, SINGLE EPISODE, UNSPECIFIED (4) Chest pain Code(s): R07.9 - CHEST PAIN, UNSPECIFIED Qualifiers: Chest pain type: unspecified Qualified Code(s): R07.9 - Chest pain, unspecified Assessment/Plan 1. UTI Due to E.Coli Last dose of IV zosyn in am then dc planning
[2016-12-02 00:06] LABS: A/G RATIO 0.7 (0.7-1.7); ALBUMIN 2.8 g/dL (2.9-4.4); GLOBULIN, TOTAL 4.3 g/dL (2.2-3.9); M-SPIKE Not Observed g/dL (Not Observed); TOTAL PROTEIN 7.1 g/dL (6.0-8.5)
[2016-12-02] MEDS: PIPERACILLIN/TAZOB 3.375 GM 50 ML IVPB SCH ×3 (01:15→17:21)
[2016-12-02] MEDS ORDERED: morphine CARPU-JECT 2 MG/1 ML DISP.SYRIN IVPUSH ONE (05:34)
--- NOTE | 2016-12-02 05:34 | HOSP ---
Subjective - Review of Symptoms Events since last encounter: chest pain Subjective: Patient woke up complaining of mid sternal chest pain 5/10, new onset, peressure like, radiating to back and jaw. She is unsure of whether it feeels similar to her prior episodes of chest pain. It is reproducible by pressing on her sternum. She denies sob, palpitations, dizziness, loc, diaphoresis, n/v. Pulmonary: No: Dyspnea, Cough Cardiovascular: Yes: Chest Pain. No: Palpitations, Orthopnea, Light Headedness Gastrointestinal: No: Nausea, Vomiting Musculoskeletal: Yes: Back Pain Neurological: No: Weakness, Numbness Physical Examination Vital Signs: Vital Signs Temperature 97.5 F L 12/02/16 05:22 Pulse Rate 48 L 12/02/16 05:22 Respiratory Rate 20 12/02/16 05:22 Blood Pressure 144/41 12/02/16 05:22 O2 Sat by Pulse Oximetry (%) 99 12/01/16 21:00 Constitutional: Yes: Thin, Other (moderate distress) Eyes: Yes: Conjunctiva Clear HENT: Yes: Normocephalic Cardiovascular: Yes: WNL, Regular Rate and Rhythm, Bradycardia (baseline), S1, S2. No: JVD Respiratory: Yes: CTA Bilaterally, On Nasal O2 Gastrointestinal: Yes: Normal Bowel Sounds, Soft Edema: No Peripheral Pulses: Left Radial: 2+, Right Radial: 2+ Neurological: Yes: Alert, Oriented Labs: CBC, BMP 12/01/16 06:50 12/01/16 06:50 Hospitalist Encounter Assessment: atypical chest pain, reproducible -EKG unchanged from prior : no acs, some st inversion in lateral leads as seen before -no acute events of tele stip othr than baseline bradycardia -check trop -likely musculoskeletal, likely lept in an uncomfortable position -pain real, patient getting hypertensive, likely panicking -1 mg morphine once -NC O2 prn Visit type - Emergency Visit Emergency Visit: No - New Patient This patient is new to me today: Yes Date on this admission: 12/02/16 - Critical Care Critical Care patient: No
[2016-12-02] MEDS ORDERED: NITROGLYCERIN SUBLINGUAL 1/150 0.4 MG TAB SL ONE (05:36)
[2016-12-02 05:48] LABS: BASOPHIL 0.1 % (0-2.0); EOSINOPHIL 1.6 % (0-4.5); MCH 29.2 pg (25.7-33.7); MCHC 31.9 g/dl (32.0-36.0); MEAN CELL VOLUME 91.6 fl (80-96); MEAN PLT VOLUME 9.3 fl (7.5-11.1); NEUTROPHILS 29.1 % (42.8-82.8); PLATELET COUNT 59 K/MM3 (134-434); WHITE BLOOD COUNT 2.1 K/mm3 (4.0-10.0)
[2016-12-02] MEDS ORDERED: NITROGLYCERIN SUBLINGUAL 1/150 0.4 MG TAB ONE (05:51)
[2016-12-02 06:08] LABS: CREATININE 1.1 mg/dL (0.55-1.02)
[2016-12-02] MEDS: CARVEDILOL 6.25 MG TABLET (FP) PO SCH (09:26)
[2016-12-02] MEDS: ASPIRIN COATED 81 MG TABLET.EC PO SCH (09:26)
[2016-12-02] MEDS: SPIRONOLACTONE 25 MG TABLET (FP) PO SCH (09:26)
[2016-12-02] MEDS: ISOSORBIDE MONONITRATE 60 MG TAB.SR.24H (FP) PO SCH (09:26)
[2016-12-02] MEDS: ESCITALOPRAM OXALATE 10 MG TABLET (FP) PO SCH (09:26)
[2016-12-02] MEDS: LISINOPRIL 5 MG TABLET (FP) PO SCH (09:27)
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
[2016-12-02 14:02] VITALS: BP 98/48; PULSE 61; TEMP 98.6
--- NOTE | 2016-12-02 17:22 | PN ---
Progress Note, Physician History of Present Illness: stable no new issues - Current Medication List Current Medications: Active Medications Acetaminophen (Tylenol -) 650 mg PO Q6H PRN PRN Reason: FEVER OR PAIN Aspirin (Ecotrin -) 81 mg PO DAILY [facility] Last Admin: 12/02/16 09:26 Dose: 81 mg Carvedilol (Coreg -) 6.25 mg PO BID [facility] Last Admin: 12/02/16 09:26 Dose: 6.25 mg Escitalopram Oxalate (Lexapro -) 10 mg PO DAILY [facility] Last Admin: 12/02/16 09:26 Dose: 10 mg Piperacillin Sod/Tazobactam Sod (Zosyn 3.375gm Ivpb (Pre-Docked)) 50 mls @ 100 mls/hr IVPB Q8H-IV [facility] Last Admin: 12/02/16 09:28 Dose: 100 mls/hr Isosorbide Mononitrate (Imdur -) 60 mg PO DAILY [facility] Last Admin: 12/02/16 09:26 Dose: 60 mg Lisinopril (Prinivil) 2.5 mg PO DAILY [facility] Last Admin: 12/02/16 09:27 Dose: 2.5 mg Spironolactone (Aldactone -) 25 mg PO DAILY [facility] Last Admin: 12/02/16 09:26 Dose: 25 mg - Objective Vital Signs: Vital Signs Temperature 98.6 F 12/02/16 14:01 Pulse Rate 61 12/02/16 14:01 Respiratory Rate 20 12/02/16 09:00 Blood Pressure 98/48 12/02/16 14:01 O2 Sat by Pulse Oximetry (%) 98 12/02/16 09:00 Constitutional: Yes: No Distress, Calm HENT: Yes: Atraumatic Cardiovascular: Yes: Regular Rate and Rhythm Respiratory: Yes: Regular, CTA Bilaterally Gastrointestinal: Yes: Normal Bowel Sounds, Soft Musculoskeletal: Yes: WNL Extremities: Yes: WNL Neurological: Yes: Alert, Oriented Psychiatric: Yes: Alert Labs: CBC, BMP 12/02/16 05:30 12/02/16 05:30 INR, PTT INR 1.25 (0.82-1.09) H 11/27/16 21:35 Fibrinogen 189.0 mg/dL (238-498) L 11/28/16 06:00 Assessment/Plan Problem List - Problems (1) Chest pain Code(s): R07.9 - CHEST PAIN, UNSPECIFIED Qualifiers: Chest pain type: unspecified Qualified Code(s): R07.9 - Chest pain, unspecified (2) Hypomagnesemial. Code(s): E83.42 - HYPOMAGNESEMIA (4) Leukopenia Code(s): D72.819 - DECREASED WHITE BLOOD CELL COUNT, UNSPECIFIED (5) Hypertension Code(s): I10 - ESSENTIAL (PRIMARY) HYPERTENSION (6) S/P coronary artery stent placement Code(s): Z95.5 - PRESENCE OF CORONARY ANGIOPLASTY IMPLANT AND GRAFT (7) Anxiety and depression Code(s): F41.9 - ANXIETY DISORDER, UNSPECIFIED F32.9 - MAJOR DEPRESSIVE DISORDER, SINGLE EPISODE, UNSPE uti neutropenia plan no abx after today rest as per medicine team
[2016-12-03 00:08] LABS: HEP B SURFACE AB Reactive (.)
--- NOTE | 2016-12-03 11:26 | PATH ---
Surgical Pathology Report Patient Name: CHARAN HUGHES [facility]. Rec. #: [id number] /Age/Gender: 1935 (Age: 81) / F Account: [id number] Location: [facility]/ADOL Taken: 11/30/2016 Received: 12/01/2016 Reported: 12/03/2016 Physicians: Linad Tinoco M.D. Specimen(s) Received PERIPHERAL BLOOD Clinical History Pancytopenia Rule out leukemia-AML, lymphoproliferative disease Final Diagnosis PERIPHERAL BLOOD: FLOW CYTOMETRY performed and interpreted at [facility], [place], [place] ([id number]) shows the following: INTERPRETATION: Leukopenia, prominent neutropenia. There is no evidence of B or T-cell proliferative disorders or increased blasts. Comment: This case was discussed with Dr. Tinoco on December 02, 2016. Additional FISH tests have been ordered, and a report will follow. Electronically Signed Demetrius Smith M.D. Addendum Reported: 12/07/2016 Addendum Diagnosis Hematologic FISH Report performed and interpreted at [facility] in [place], [place] ([id number]) shows the following. INTERPRETATION: No evidence of deletion 5q or monosomy 5 is present. No evidence of deletion 7q or monosomy 7 is present. No evidence of trisomy 8 (+8) is present. No evidence of deletion 13q14 is present. No evidence of a rearrangement of 11q23. No evidence of a deletion of the p53 (17p13) locus. No evidence of deletion 20q12 is present. Comments: The study is negative for many of the most common recurrent genetic abnormalities in Myelodysplastic Syndrome. Demetrius Smith M.D. Gross Description Received are 2 green top tubes and 2 lavender top tubes of blood which are sent to [facility]. DL/12/01/2016 saudi12/01/2016
--- NOTE | 2016-12-04 12:05 | EKG ---
Test Reason : Blood Pressure : / mmHG Vent. Rate : 061 BPM Atrial Rate : 061 BPM P-R Int : 142 ms QRS Dur : 086 ms QT Int : 430 ms P-R-T Axes : 057 -06 138 degrees QTc Int : 432 ms NORMAL SINUS RHYTHM LEFT VENTRICULAR HYPERTROPHY WITH REPOLARIZATION ABNORMALITY ANTERIOR INFARCT , AGE UNDETERMINED ABNORMAL ECG Confirmed by GET CADENA MD ([id number]) on 12/04/2016 12:04:41 PM Referred By: Confirmed By:GET CADENA MD
== END 2016-12-02 18:45 | disposition home or self-care (01) | DRG 313 ==
LOC: JER 07:48 → JERBED 11:15 → OBSVTOIN 11:15 → J4S 19:20
PROVIDERS: ADMIT Internal Medicine; ATTEND Internal Medicine
DX: R07.89 Other chest pain (principal); D61.818 Other pancytopenia; I50.22 Chronic systolic (congestive) heart failure; N39.0 Urinary tract infection, site not specified; E83.42 Hypomagnesemia; D72.819 Decreased white blood cell count, unspecified; F41.8 Other specified anxiety disorders; Z98.61 Coronary angioplasty status; I11.0 Hypertensive heart disease with heart failure; Z86.73 Personal history of transient ischemic attack (TIA), and cerebral infarction without residual deficits; B19.20 Unspecified viral hepatitis C without hepatic coma; B96.20 Unspecified Escherichia coli [E. coli] as the cause of diseases classified elsewhere; R42 Dizziness and giddiness; K74.60 Unspecified cirrhosis of liver; I25.2 Old myocardial infarction
CPT/HCPCS: 36415; 71020-TC; 76700-TC; 80048; 80053; 80061; 81003; 81015; 82550; 82607; 82747; 82784; 83010; 83615; 83721; 83735; 83883; 84155; 84165; 84439; 84443; 84484; 84550; 85014; 85025; 85044; 85384; 85610; 85651; 85730; 86038; 86140; 86431; 86704; 86706; 86708; 86803; 87040; 87086; 87186; 87340; 87522; 88300-TC; 93005; 93010; 93306-TC; 99285-25; J1644